=== PATIENT | male | born 1955 | race Caucasian/White ===

== ENCOUNTER 2025-05-19 10:51 | Inpatient (IN) | payer MEDICARE, SELFPAY ==
[2025-05-19] VITALS (11 sets, daily range): BP systolic 115–171; BP diastolic 63–97; PULSE 60–99; RESP 14–20; TEMP 36.6–36.7; O2SAT 95–100
--- NOTE | ~2025-05-19 | XR_ITS ---
EXAMINATION: XR chest 2V 05/19/2025 11:42 INDICATION: SVT. Chest pressure and shortness of breath. PROCEDURE: 2 view chest COMPARISON: 05/28/2012 FINDINGS: The lungs are clear. The cardiomediastinal silhouette is within normal limits. There are no pleural effusions. There is no pneumothorax suspected. IMPRESSION: 1: NO ACUTE CARDIOPULMONARY DISEASE. Reviewed, dictated and finalized at location A.
--- NOTE | 2025-05-19 10:57 | ECG_ITS ---
Test Date: 2025-05-19 10:58:31 Measurements Intervals [place] Rate: 101 P: 3 VA: 171 QRS: -25 QRSD: 114 T: -15 QT: 361 QTc: 468 Interpretive Statements SINUS TACHYCARDIA INTRAVENTRICULAR CONDUCTION DELAY VOLTAGE CRITERIA FOR LVH BORDERLINE ST-T WAVE ABNORMALITY- ANT/INF LEADS BORDERLINE ECG No previous ECG available for comparison Electronically Signed On 05-19-2025 11:18:18 CDT by Jamal Garcia D.O.
--- NOTE | 2025-05-19 11:08 | ED_ITS ---
HPI - Arrhythmia/Palpitations General Chief Complaint: Arrhythmia/Palpitations Stated Complaint: chest tightness, sob Time Seen by Provider: 05/19/25 11:01 History of Present Illness HPI narrative: Pt felt lightheaded and dizzy and felt his heart racing and became sob with some chest tightness. on ems arrival pt was in svt with rate in 170's. Pt converted with adenosine. Pt has no CP or SOB now. Pt has no history of svt. Related Data Allergies Allergy/AdvReac Type Severity Reaction Status Date / Time No Known Allergies Allergy Verified 05/19/25 11:08 Review of Systems 2 Review of Systems: All systems reviewed & are unremarkable except as noted in HPI and below Exam 2 Const: General: healthy appearing and no acute distress Nutritional Appearance: well nourished Orientation/consciousness: patient oriented x3 Limitations: no limitations HENMT: Head: normal to inspection Eyes: Pupils: Equal, round and reactive pupils present EOM: EOMs intact bilaterally Chest: Chest palpation & inspection: normal inspection of the chest Resp: Effort & Inspection: normal respiratory effort Auscultation: clear to auscultation bilaterally Cardio: Rate: tachycardic Rhythm: regular rhythm GI: Auscultation: normal bowel sounds Back/Spine/Pelvis: Back: no CVA tenderness Skin: General skin exam: normal color Rashes: no rashes Wounds: no wounds Neuro: General: patient oriented x3, moves all extremities, no meningeal signs and no focal motor deficits Speech: normal speech Extrem: General: normal to inspection and no clubbing, cyanosis or edema Psych: Mental Status: mental status grossly normal Affect: normal affect Attitude: cooperative Course Vital Signs Vital signs: Vital Signs Temperature 98 F 05/19/25 10:58 Pulse Rate 99 05/19/25 10:58 Respiratory Rate 14 05/19/25 10:58 Blood Pressure 171/95 H 05/19/25 10:58 Pulse Oximetry 98 05/19/25 10:58 Oxygen Delivery Room Air 05/19/25 10:58 Temperature 98 F 05/19/25 10:58 Pulse Rate 75 05/19/25 15:43 Respiratory Rate 18 05/19/25 15:43 Blood Pressure 148/97 H 05/19/25 15:43 Pulse Oximetry 97 05/19/25 15:43 Oxygen Delivery Room Air 05/19/25 11:10 MDM - Arrhythmia/Palpitations MDM Narrative Medical decision making narrative: Pt had episode of svt with sob and cp. pt converted with adenosine per ems and now asymptomatic but has st depression on ekg post conversion. will need labs and trop. second ekg unchanged and pt asymptomatic for 3 hrs, blood sugar over 500. will give insulin and admit for new onset diabetes. discussed with Nancy Orlando and agrees to admit. Lab Data 05/19/25 11:13 05/19/25 11:13 Labs: Lab Results 05/19/25 05/19/25 05/19/25 Range/Units 11:13 11:50 13:00 WBC 5.7 (4.5-10.0) K/mm3 RBC 4.93 (4.6-6.20) M/mm3 Hgb 14.3 (14.0-18.0) g/dL Hct 41.2 L (42.0-52.0) % MCV 83.6 (80-100) fl MCH 29.0 (26-34) pg MCHC 34.7 (32-36) g/dl RDW 12.4 (11.5-14.5) % Plt Count 235 (150-375) k/mm3 MPV 9.5 (7.4-10.4) fl Immature Gran % (Auto) 0.4 (0-0.5) % Neut % (Auto) 59.7 (45.5-73.1) % Lymph % (Auto) 26.2 (18.3-44.2) % [place] % (Auto) 9.5 H (2.6-8.5) % Eos % (Auto) 3.7 (0-4.4) % Baso % (Auto) 0.5 (0.2-1.2) % Lymph # (Auto) 1.49 (0.9-3.2) K/mm3 [place] # (Auto) 0.5 (0.1-0.6) K/mm3 Eos # (Auto) 0.2 (0-0.3) K/mm3 Baso # (Auto) 0.0 (0.0-0.1) K/mm3 Abs Immat Gran (auto) 0.02 (0.00-0.031) K/mm3 Absolute Neuts (auto) 3.4 (1.3-6.7) K/mm3 Absolute Nucleated RBC 0.000 (0.0-0.012) K/mm3 Nucleated RBC % 0.0 (0.0-0.2) % PT 13.3 (11.1-14.7) Seconds INR 1.0 APTT 33.1 (22.3-36.8) Seconds Sodium 130 L (137-145) mmol/L Potassium 4.3 (3.4-5.0) mmol/L Chloride 99 (98-107) mmol/L Carbon Dioxide 20 L (22-30) mmol/L Anion Gap 11 (4-12) mmol/L BUN 18 (9-20) mg/dL Creatinine 0.93 (0.7-1.3) mg/dL Estim Creat Clear Calc 84 ml/min Estimated GFR > 60 (59 - ) Glucose 523 H* (65-110) mg/dL POC Capillary Glucose 489 H 363 H (65-105) mg/dl Calcium 9.7 (8.4-10.2) mg/dL Total Bilirubin 0.9 (0.2-1.3) mg/dL AST 45 (17-59) U/L ALT 37 (6-50) U/L Alkaline Phosphatase 147 H (38-126) U/L Troponin I 0.019 (0.000-0.034) ng/mL Total Protein 7.9 (6.3-8.2) g/dL Albumin 4.4 (3.5-5.1) g/dL Lipase 106 (23-300) U/L ECG Data EKG #1: Interpretation: sinus tach rate 101, iv conduction delay, st depression v2-v6 but most pronounced v3 Discharge Plan Discharge Clinical Impression: Supraventricular tachycardia, Hyperglycemia due to diabetes mellitus Patient Disposition: Still a Patient Condition: Improved
[2025-05-19 11:24] LABS: Hematocrit 41.2 % (42.0-52.0); Hemoglobin 14.3 g/dL (14.0-18.0); Immature Granulocyte Percent A 0.4 % (0-0.5); Lymphocytes Absolute Auto 1.49 K/mm3 (0.9-3.2); Mean Corpuscular HGB Conc 34.7 g/dl (32-36); Mean Corpuscular Hemoglobin 29.0 pg (26-34); Mean Corpuscular Volume 83.6 fl (80-100); Nucleated Red Blood Cells Absolute Auto 0.000 K/mm3 (0.0-0.012); Nucleated Red Blood Cells Perc 0.0 % (0.0-0.2); Platelet Count Result 235 k/mm3 (150-375); Red Blood Count 4.93 M/mm3 (4.6-6.20); White Blood Count 5.7 K/mm3 (4.5-10.0)
[2025-05-19 11:35] LABS: INR 1.0; Prothrombin Time 13.3 Seconds (11.1-14.7)
[2025-05-19 11:36] LABS: Partial Thromboplastin Time 33.1 Seconds (22.3-36.8)
[2025-05-19 11:42] LABS: Alanine Aminotransferase 37 U/L (6-50); Albumin Level 4.4 g/dL (3.5-5.1); Alkaline Phosphatase 147 U/L (38-126); Anion Gap 11 mmol/L (4-12); Aspartate Amino Transferase 45 U/L (17-59); Bilirubin,Total 0.9 mg/dL (0.2-1.3); Blood Urea Nitrogen 18 mg/dL (9-20); Calcium 9.7 mg/dL (8.4-10.2); Carbon Dioxide 20 mmol/L (22-30); Chloride 99 mmol/L (98-107); Estimated CRCL calculation 84 ml/min; Estimated Glomerular Filt Rate > 60; Glucose 523 mg/dL (65-110); Lipase 106 U/L (23-300); Potassium 4.3 mmol/L (3.4-5.0); Sodium 130 mmol/L (137-145); Total Protein 7.9 g/dL (6.3-8.2)
[2025-05-19 11:53] LABS: Troponin I 0.019 ng/mL (0.000-0.034)
--- NOTE | 2025-05-19 11:55 | ECG_ITS ---
Test Date: 2025-05-19 12:00:35 Measurements Intervals [place] Rate: 93 P: 11 MO: 174 QRS: -30 QRSD: 114 T: 3 QT: 365 QTc: 455 Interpretive Statements SINUS RHYTHM INTRAVENTRICULAR CONDUCTION DELAY VOLTAGE CRITERIA FOR LVH MINIMAL Q WAVES- HIGH LATERAL LEADS BORDERLINE ST-T WAVE ABNORMALITY- ANT/INF LEADS BASELINE ARTIFACT- I, III, AVL BORDERLINE ECG Compared to ECG 05/19/2025 10:58:31 HEART RATE HAS DECREASED Electronically Signed On 05-19-2025 12:04:51 CDT by Jamal Garcia D.O.
[2025-05-19] MEDS: INSULIN HUMAN REGULAR (*BKC) 100 UNITS/ML 8 UNITS IV PUSH (12:07)
--- NOTE | 2025-05-19 13:58 | ECG_ITS ---
Test Date: 2025-05-19 14:08:25 Measurements Intervals [place] Rate: 85 P: 6 CO: 166 QRS: -31 QRSD: 107 T: 6 QT: 366 QTc: 436 Interpretive Statements SINUS RHYTHM LEFT AXIS DEVIATION LEFT VENTRICULAR HYPERTROPHY BORDERLINE ECG Compared to ECG 05/19/2025 12:00:35 NO SIGNIFICANT CHANGE Electronically Signed On 05-19-2025 14:17:04 CDT by Jamal Garcia D.O.
[2025-05-19 14:35] LABS: Troponin I 0.463 ng/mL (0.000-0.034)
--- NOTE | 2025-05-19 17:36 | P.HP_ITS ---
H&P: HPI History of Present Illness Date/Time: 05/19/25 17:36 Chief Complaint: Chest Tightness Narrative: 70 y/o M with no significant known PMH presents here with chest tightness. The patient presents here from home via EMS for further evaluation of chest tightness, shortness of breath, and lightheadedness. He reports acute onset of the symptoms which prompted him to call 911. Upon EMS arrival the patient was noted to be in SVT with a heart rate in the 170s. The patient was initially given 6 mg of adenosine with no improvement. Then seems repeated at 12 mg and patient was successfully converted to sinus rhythm in the 90s. Patient's symptoms then resolved after resolution of SVT. He now denies chest pain, dizziness, palpations, nausea, vomiting, diarrhea, shortness of breath. He denies any precipitating illness. He denies any previous history of dysrhythmia or SVT. Upon evaluation in the emergency department the patient was noted to have a glucose of 523. He denies any previously known history of diabetes. Does endorse polydipsia (however previously contributed this to always being outside). Denies polyuria. Initial VS at presentation: 98? F, HR 99 RR 14, 171/95, and 98% on RA. ED workup showed: No leukocytosis, no anemia, normal coags, sodium 130, creatinine 0.93 and GFR >60, glucose 523, initial troponin 0.019 (repeat 0.463). CXR showed no acute cardiopulmonary disease. Initial EKG showed sinus tachycardia, rate 101, and IVC delay, voltage criteria for LVH, borderline ST-T-wave abnormality anterior/inferior leads. Review of Systems Review of Systems: All systems reviewed & are unremarkable except as noted in HPI and below [facility] Past Medical History Medical History (Updated 05/19/25 @ 17:45 by Nancy Delgado APRN) Supraventricular tachycardia 1st occurrence on 05/19/25 Social History Social History Smoking status: Never smoker Alcohol intake: never Substance use: never Lack of Transportation: No Lack of Food: Never True Current Housing: I Have Housing Concerned About Future Housing: No Difficulty Paying Gas/Electric Bills: No Difficulty Paying for Meds: No Currently Unemployed: No Education: Bachelor's Degree Difficulty w/ Childcare or Family Care: No Spiritual care concerns: No Meds Home Medications and Allergies Home Medications ?Medication ?Instructions ?Recorded ?Confirmed ?Type No Home Medications 05/19/25 05/19/25 History Allergies Allergy/AdvReac Type Severity Reaction Status Date / Time No Known Allergies Allergy Verified 05/19/25 11:08 Vital Signs Vital Signs - 24 hr 05/19/25 10:58 05/19/25 11:07 05/19/25 11:10 Temperature 98 F Pulse Rate 99 97 Respiratory Rate 14 Blood Pressure 171/95 H Pulse Oximetry 98 Oxygen Delivery Room Air Room Air 05/19/25 12:15 05/19/25 14:41 05/19/25 15:43 Temperature Pulse Rate 95 80 75 Respiratory Rate 20 19 18 Blood Pressure 154/81 H 144/80 H 148/97 H Pulse Oximetry 98 95 97 Oxygen Delivery Exam Const: General: comfortable and no acute distress Other: , male, nontoxic appearance HENMT: Face/Nose/Sinus: Normal nares present Mouth: Yes moist mucous membranes Eyes: General: appearance normal, both eyes and all related structures Sclera: sclerae normal Pupils: Equal, round and reactive pupils present EOM: EOMs intact bilaterally Resp: Effort & Inspection: normal respiratory effort Auscultation: clear to auscultation bilaterally Cardio: Rate: regular rate Rhythm: regular rhythm Other: S1-S2 present without murmur, rub, ectopy GI: Other: Abdomen soft, nondistended, nontender. Normoactive bowel sounds in all quadrants. Skin: General skin exam: normal color and no rashes or lesions noted Wounds: no wounds Neuro: Speech: normal speech Motor exam (neuro): 5/5 motor strength present throughout Sensory Exam: normal sensation Other: A&O x4 Extrem: General: normal to inspection Psych: Mental Status: mental status grossly normal Affect: normal affect Other: Good insight and judgment, very pleasant H&P: Results Labs Labs: Short CBC 05/19/25 Range/Units 11:13 WBC 5.7 (4.5-10.0) K/mm3 Hgb 14.3 (14.0-18.0) g/dL Hct 41.2 L (42.0-52.0) % Plt Count 235 (150-375) k/mm3 [facility] 05/19/25 11:13 Sodium 130 L Potassium 4.3 Chloride 99 Carbon Dioxide 20 L BUN 18 Creatinine 0.93 Glucose 523 H* Calcium 9.7 Cardiac Enzymes 05/19/25 05/19/25 Range/Units 11:13 14:04 Troponin I 0.019 0.463 H* D (0.000-0.034) ng/mL Liver Function 05/19/25 Range/Units 11:13 Total Bilirubin 0.9 (0.2-1.3) mg/dL AST 45 (17-59) U/L ALT 37 (6-50) U/L Alkaline Phosphatase 147 H (38-126) U/L Albumin 4.4 (3.5-5.1) g/dL Assessment and Plan Assessment and plan (1) Type 2 diabetes mellitus: Qualifiers: Diabetes mellitus complication status: with hyperglycemia Diabetes mellitus penitentiary insulin use: without parts counterman use Qualified Code(s): E11.65 - Type 2 diabetes mellitus with hyperglycemia Code(s): E11.9 - Type 2 diabetes mellitus without complications Status: Acute Assessment and Plan: No previous history of diabetes, initial glucose upon initial evaluation on 05/19 was 523. - hypoglycemia protocol - POC blood glucose ACHS - correct regimen ordered - high dose TIDWM, based off BMI - A1C ordered - specimen processor consulted - dietitian consulted (2) Supraventricular tachycardia: Code(s): I47.10 - Supraventricular tachycardia, unspecified Status: Acute Assessment and Plan: - NSR upon arrival post adenosine (6 mg and 12 mg via EMS). No previous hx of same. First occurrence. - check Magnesium and TSH -> Mag WNL - troponin: 0.019 -> 0.463 -> 1.53. Suspect elevation in troponin secondary to SVT/cardiac stress. Denies recurrence of chest pain, chest tightness, palpitations, or shortness of breath. - cardiology consulted - telemetry Plan Diet: Diabetic GI Prophylaxis: n/a DVT Prophylaxis: Lovenox SQ IV fluids: None Lines/Tubes: Peripheral IV Code Status: Full code Quality VTE Prophylaxis VTE prophylaxis: pharmacologic ordered Hospitalist [facility] Advance Care Plan I have confirmed that the patient's Advanced Care Plan is present, code status is documented, or surrogate decision maker is listed in patient medical record.: Yes Medication Reconciliation I have utilized all available resources to obtain, update and review the patients current medications (includes all prescriptions, OTC, herbals, cannabis, and nutritional supplements).: Yes
--- NOTE | 2025-05-19 17:38 | ADMGEN ---
This patient, Spenser Robbins, was admitted to IMU Room 213-01. Patient/family oriented to hospital policies and general routines including ID bracelet, bed and alarms, visiting hours, pain management, procedures, bathroom and other care routines, personal items, smoking policy, room service/diet, and visiting hours. Information on how to activate the Rapid Response Team has been discussed. Patient/Family are encouraged to report perceived risks to care and to ask questions if they do not understand what they are told or what they should do.
[2025-05-19 19:09] LABS: Troponin I 1.530 ng/mL (0.000-0.034)
[2025-05-19 19:59] LABS: Magnesium 1.8 mg/dL (1.6-2.3)
[2025-05-19 21:58] LABS: Troponin I 1.680 ng/mL (0.000-0.034)
[2025-05-20] VITALS (21 sets, daily range): BP systolic 132–165; BP diastolic 73–116; PULSE 55–85; RESP 16–18; TEMP 36.4–36.9; O2SAT 96–100; BMI 32.1
--- NOTE | 2025-05-20 | ECHO_ITS ---
Patient Info Name: Spenser Robbins Age: 70 years : 1955 Gender: Male Ht: 72 in Wt: 223 lbs BSA: 2.29 m2 HR: 53 bpm BP: 154 / 85 mmHg Technical Quality: Good Exam Date: 05/20/2025 3:09 PM Patient Status: I Admit Date: 05/20/2025 Exam Type: CA echo doppler color flow Complete two-dimensional, color flow and Doppler transthoracic echocardiogram is performed. Staff Referring Physician: Glenn De Leon III [employer] Trader: Chika Vasquez Attending Provider: Quinn Chamorro Summary 1. Complete two-dimensional, color flow and Doppler transthoracic echocardiogram is performed. 2. Left ventricular chamber dimension is normal. 3. Left ventricular systolic function is normal, estimated at 60-65. 4. The left ventricular diastolic function is grade I diastolic dysfunction. 5. E/e' 8 is minimally elevated. Left Ventricle E/e' 8 is minimally elevated. Left ventricular chamber dimension is normal. Left ventricular systolic function is normal, estimated at 60-65. The left ventricular diastolic function is grade I diastolic dysfunction. Right Ventricle Right ventricular chamber dimension is normal. Right ventricular systolic function is normal and with normal TAPSE 1.8 cm. Left Atria Left atrial chamber dimension is normal. Right Atria Right atrial chamber dimension is normal. Aortic Valve The aortic valve is trileaflet. There is no aortic valve stenosis. There is no aortic valve regurgitation. Pulmonic Valve There is no pulmonic regurgitation. Mitral Valve There is no mitral valve stenosis. There is no mitral valve regurgitation. Tricuspid Valve There is no tricuspid valve regurgitation. Pericardium/Pleural There is no pericardial effusion. Inferior Vena Cava Normal inferior vena cava with >50% collapse upon inspiration consistent with normal right atrial pressure, 5 mmHg. Aorta The aortic root size at the sinus of Valsalva is normal. Left Ventricular Outflow Tract Name Value Normal LVOT 2D LVOT Diameter 2.0 cm LVOT Doppler LVOT Peak Velocity 122 cm/s LVOT Peak Gradient 6 mmHg LVOT Mean Gradient 3 mmHg LVOT VTI 24 cm LVOT Stroke Volume 74 ml LVOT CO 3.9 l/min LVOT CI 1.7 l/min/m2 Pulmonic Valve Name Value Normal RVOT Doppler RVOT Peak Velocity 80 cm/s RVOT Peak Gradient 3 mmHg PV Doppler PV Peak Velocity 120 cm/s PV Peak Gradient 6 mmHg Mitral Valve Name Value Normal MV Diastolic Function MV E Peak Velocity 52 cm/s MV A Peak Velocity 74 cm/s MV E/A 0.7 MV Decel Time (PW) 288 ms MV Annular TDI MV E/e' (Septal) 12.1 MV E/e' (Lateral) 6.5 MV E/e' (Average) 9.3 Tricuspid Valve Name Value Normal Estimated PAP/RSVP RA Pressure 5 mmHg <=5 Aortic Valve Name Value Normal AV Doppler AV Peak Velocity 143 cm/s AV Peak Gradient 8 mmHg AV Area (Cont Eq Andrew) 2.6 cm2 AV DI (Andrew) 0.85 AV Regurgitation 2D LVOT Area 3.1 cm2 Ventricles Name Value Normal LV Dimensions 2D/MM IVS Diastolic Thickness (2D) 0.9 cm 0.6-1.0 LVID Diastole (2D) 5.2 cm 4.2-5.8 LVIW Diastolic Thickness (2D) 1.0 cm 0.6-1.0 LVID Systole (2D) 3.2 cm 2.5-4.0 LVOT Diameter 2.0 cm LV Mass (2D Cubed) 189.27 g 88.00-224.00 LV Mass Index (2D Cubed) 83 g/m2 49-115 Relative Wall Thickness (2D) 0.40 <=0.42 LV Fractional Shortening/Ejection Fraction 2D/MM LV Fractional Shortening (2D) 38 % 25-43 LV EF (2D [place]) 68 % LV Diastolic Volume (4C MOD) 122 ml LV EF (4C MOD) 55 % LV Diastolic Volume (2C MOD) 125 ml LV EF (2C MOD) 65 % LV Diastolic Volume (BP MOD) 124 ml 62-150 LV Diastolic Volume Index (BP MOD) 54 ml/m2 34-74 LV Systolic Volume (BP MOD) 50 ml 21-61 LV Systolic Volume Index (BP MOD) 22 ml/m2 11-31 LV EF (BP MOD) 59 % 52-72 LV Diastolic Length (4C) 8.8 cm LV Systolic Length (4C) 7.8 cm LV Stroke Volume (4C MOD) 67 ml Atria Name Value Normal LA Dimensions LA Volume (4C A-L) 45 ml LA Volume (BP A-L) 56 ml RA Dimensions RA Systolic Major [place] Length (4C) 5.0 cm 2.1-2.7 RA Area (4C) 10.8 cm2 <=18.0 Report Signatures
[2025-05-20 01:53] LABS: Troponin I 1.470 ng/mL (0.000-0.034)
[2025-05-20 04:53] LABS: Hematocrit 43.3 % (42.0-52.0); Hemoglobin 14.6 g/dL (14.0-18.0); Immature Granulocyte Percent A 0.2 % (0-0.5); Lymphocytes Absolute Auto 2.20 K/mm3 (0.9-3.2); Mean Corpuscular HGB Conc 33.7 g/dl (32-36); Mean Corpuscular Hemoglobin 28.7 pg (26-34); Mean Corpuscular Volume 85.1 fl (80-100); Nucleated Red Blood Cells Absolute Auto 0.000 K/mm3 (0.0-0.012); Nucleated Red Blood Cells Perc 0.0 % (0.0-0.2); Platelet Count Result 263 k/mm3 (150-375); Red Blood Count 5.09 M/mm3 (4.6-6.20); White Blood Count 5.4 K/mm3 (4.5-10.0)
[2025-05-20 04:58] LABS: Hemoglobin A1C 10.4 % (<5.7)
[2025-05-20 05:10] LABS: Alanine Aminotransferase 32 U/L (6-50); Albumin Level 4.4 g/dL (3.5-5.1); Alkaline Phosphatase 83 U/L (38-126); Anion Gap 7 mmol/L (4-12); Aspartate Amino Transferase 35 U/L (17-59); Bilirubin,Total 0.9 mg/dL (0.2-1.3); Blood Urea Nitrogen 16 mg/dL (9-20); Calcium 10.2 mg/dL (8.4-10.2); Carbon Dioxide 27 mmol/L (22-30); Chloride 100 mmol/L (98-107); Estimated CRCL calculation 78 ml/min; Estimated Glomerular Filt Rate > 60; Glucose 249 mg/dL (65-110); Potassium 4.3 mmol/L (3.4-5.0); Sodium 134 mmol/L (137-145); Total Protein 7.9 g/dL (6.3-8.2)
[2025-05-20 05:40] LABS: Thyroid Stimulating Hormone Reflex 1.540 uIU/mL (0.465-4.68)
--- NOTE | 2025-05-20 08:07 | P.PNIM_ITS ---
Progress Note: A&P Assessment and Plan (1) Type 2 diabetes mellitus: Qualifiers: Diabetes mellitus complication status: with hyperglycemia Diabetes mellitus remote computer terminal operator insulin use: without remote computer terminal operator use Qualified Code(s): E11.65 - Type 2 diabetes mellitus with hyperglycemia Code(s): E11.9 - Type 2 diabetes mellitus without complications Status: Acute Assessment and Plan: No previous history of diabetes, initial glucose upon initial evaluation on 05/19 was 523. - hypoglycemia protocol - POC blood glucose ACHS - correct regimen ordered - high dose TIDWM, based off BMI - A1C ordered - environmental educator consulted - dietitian consulted hga1c 10.4 -will add 10 units of lantus (2) Supraventricular tachycardia: Code(s): I47.10 - Supraventricular tachycardia, unspecified Status: Acute Assessment and Plan: - NSR upon arrival post adenosine (6 mg and 12 mg via EMS). No previous hx of same. First occurrence. - check Magnesium and TSH -> Mag WNL - troponin: 0.019 -> 0.463 -> 1.53. Suspect elevation in troponin secondary to SVT/cardiac stress. Denies recurrence of chest pain, chest tightness, palpitations, or shortness of breath. - cardiology consulted - telemetry Plan Diet: Diabetic GI Prophylaxis: n/a DVT Prophylaxis: Lovenox SQ IV fluids: None Lines/Tubes: Peripheral IV Code Status: Full code Time Spent With Patient Time with patient: 25 - 35 minutes Subjective Date/time seen: 05/20/25 08:07 Interval history: 70 y/o M with no significant known PMH presents here with chest tightness. Pt is seen and examined. Cardiology consulted-waiting for recommendations. no chest pain, no sob Review of Systems Review of Systems: All systems reviewed & are unremarkable except as noted in HPI and below Exam Const: General: comfortable and no acute distress Other: , male, nontoxic appearance HENMT: Face/Nose/Sinus: Normal nares present Mouth: Yes moist mucous membranes Eyes: General: appearance normal, both eyes and all related structures Sclera: sclerae normal Pupils: Equal, round and reactive pupils present EOM: EOMs intact bilaterally Resp: Effort & Inspection: normal respiratory effort Auscultation: clear to auscultation bilaterally Cardio: Rate: regular rate Rhythm: regular rhythm Other: S1-S2 present without murmur, rub, ectopy GI: Other: Abdomen soft, nondistended, nontender. Normoactive bowel sounds in all quadrants. Skin: General skin exam: normal color and no rashes or lesions noted Wounds: no wounds Neuro: Cranial nerves: Yes Equal, round and reactive pupils present Speech: normal speech Motor exam (neuro): 5/5 motor strength present throughout Sensory Exam: normal sensation Other: A&O x4 Extrem: General: normal to inspection Psych: Mental Status: mental status grossly normal Affect: normal affect Other: Good insight and judgment, very pleasant Objective Data Vital Signs Vital Signs: Vital Signs - 24 hr 05/19/25 10:58 05/19/25 11:07 05/19/25 11:10 Temperature 98 F Pulse Rate 99 97 Respiratory Rate 14 Blood Pressure 171/95 H Pulse Oximetry 98 Oxygen Delivery Room Air Room Air 05/19/25 12:15 05/19/25 14:41 05/19/25 15:43 Temperature Pulse Rate 95 80 75 Respiratory Rate 20 19 18 Blood Pressure 154/81 H 144/80 H 148/97 H Pulse Oximetry 98 95 97 Oxygen Delivery 05/19/25 17:05 05/19/25 18:00 05/19/25 19:30 Temperature 98 F 97.9 F Pulse Rate 64 70 60 Respiratory Rate 14 16 Blood Pressure 134/89 151/94 H Pulse Oximetry 100 100 Oxygen Delivery 05/19/25 20:00 05/19/25 20:00 05/19/25 22:00 Temperature Pulse Rate 65 61 61 Respiratory Rate Blood Pressure Pulse Oximetry Oxygen Delivery Room Air 05/19/25 23:23 05/20/25 00:00 05/20/25 00:00 Temperature 98.0 F Pulse Rate 62 58 L 61 Respiratory Rate 18 Blood Pressure 115/63 Pulse Oximetry 100 Oxygen Delivery Room Air 05/20/25 02:00 05/20/25 03:31 05/20/25 04:00 Temperature 98.4 F Pulse Rate 57 L 63 68 Respiratory Rate 17 Blood Pressure 159/93 H Pulse Oximetry 100 Oxygen Delivery 05/20/25 04:00 05/20/25 06:00 05/20/25 07:38 Temperature 97.6 F Pulse Rate 61 77 70 Respiratory Rate 18 Blood Pressure 165/90 H Pulse Oximetry 100 Oxygen Delivery Room Air Intake/Output Intake/Output: Intake & Output 05/17/25 05/18/25 05/19/25 05/20/25 23:59 23:59 23:59 23:59 Intake Total 240 240 Output Total 400 Balance -160 240 Meds/Results Medications: Active Medications Generic Name Dose Route Start Last Admin Trade Name Freq PRN Reason Stop Dose Admin Dextrose 12.5 gm 05/19/25 17:43 Dextrose 50% 25 Gm/50 Ml Syringe IV PUSH PRN PRN Hypoglycemia Protocol Enoxaparin Sodium 40 mg 05/20/25 09:00 Enoxaparin 40 Mg/0.4 Ml Syringe SUB-Q DAILY [facility] Glucagon 1 mg 05/19/25 17:43 Glucagon For Inj 1 Mg Vial IM PRN PRN Hypoglycemia Protocol Glucose 15 gm 05/19/25 17:43 Glucose Oral Gel 15 Gm Of Glucse In 37.5 Gm Tube PO PRN PRN Hypoglycemia Protocol Dextrose 1,000 mls @ 100 mls/hr 05/19/25 17:43 Dextrose 5% 1,000 Ml IVPB PRN PRN Hypoglycemia Protocol Insulin Aspart 4 - 8 units 05/20/25 08:00 Insulin Aspart (*Bkc) 100 Units/Ml SUB-Q TIDWM [facility] Protocol Radiology Results: ITS Impressions Chest X-Ray 05/19/25 11:57 IMPRESSION: 1: NO ACUTE CARDIOPULMONARY DISEASE. Labs Labs: Laboratory Results - last 24 hr 05/19/25 05/19/25 05/19/25 11:13 11:50 13:00 WBC 5.7 RBC 4.93 Hgb 14.3 Hct 41.2 L MCV 83.6 MCH 29.0 MCHC 34.7 RDW 12.4 Plt Count 235 MPV 9.5 Immature Gran % (Auto) 0.4 Neut % (Auto) 59.7 Lymph % (Auto) 26.2 [place] % (Auto) 9.5 H Eos % (Auto) 3.7 Baso % (Auto) 0.5 Lymph # (Auto) 1.49 [place] # (Auto) 0.5 Eos # (Auto) 0.2 Baso # (Auto) 0.0 Abs Immat Gran (auto) 0.02 Absolute Neuts (auto) 3.4 Absolute Nucleated RBC 0.000 Nucleated RBC % 0.0 PT 13.3 INR 1.0 APTT 33.1 Sodium 130 L Potassium 4.3 Chloride 99 Carbon Dioxide 20 L Anion Gap 11 BUN 18 Creatinine 0.93 Estim Creat Clear Calc 84 Estimated GFR > 60 Glucose 523 H* POC Capillary Glucose 489 H 363 H Hemoglobin A1c Calcium 9.7 Magnesium Total Bilirubin 0.9 AST 45 ALT 37 Alkaline Phosphatase 147 H Troponin I 0.019 Total Protein 7.9 Albumin 4.4 Lipase 106 TSH (Reflex) 05/19/25 05/19/25 05/19/25 14:04 15:51 17:39 WBC RBC Hgb Hct MCV MCH MCHC RDW Plt Count MPV Immature Gran % (Auto) Neut % (Auto) Lymph % (Auto) [place] % (Auto) Eos % (Auto) Baso % (Auto) Lymph # (Auto) [place] # (Auto) Eos # (Auto) Baso # (Auto) Abs Immat Gran (auto) Absolute Neuts (auto) Absolute Nucleated RBC Nucleated RBC % PT INR APTT Sodium Potassium Chloride Carbon Dioxide Anion Gap BUN Creatinine Estim Creat Clear Calc Estimated GFR Glucose POC Capillary Glucose 269 H 255 H Hemoglobin A1c Calcium Magnesium Total Bilirubin AST ALT Alkaline Phosphatase Troponin I 0.463 H* D Total Protein Albumin Lipase TSH (Reflex) 05/19/25 05/19/25 05/19/25 18:33 21:15 21:23 WBC RBC Hgb Hct MCV MCH MCHC RDW Plt Count MPV Immature Gran % (Auto) Neut % (Auto) Lymph % (Auto) [place] % (Auto) Eos % (Auto) Baso % (Auto) Lymph # (Auto) [place] # (Auto) Eos # (Auto) Baso # (Auto) Abs Immat Gran (auto) Absolute Neuts (auto) Absolute Nucleated RBC Nucleated RBC % PT INR APTT Sodium Potassium Chloride Carbon Dioxide Anion Gap BUN Creatinine Estim Creat Clear Calc Estimated GFR Glucose POC Capillary Glucose 259 H Hemoglobin A1c Calcium Magnesium 1.8 Total Bilirubin AST ALT Alkaline Phosphatase Troponin I 1.530 H* D 1.680 H* Total Protein Albumin Lipase TSH (Reflex) 05/20/25 05/20/25 05/20/25 01:08 04:25 07:19 WBC 5.4 RBC 5.09 Hgb 14.6 Hct 43.3 MCV 85.1 MCH 28.7 MCHC 33.7 RDW 12.5 Plt Count 263 MPV 9.2 Immature Gran % (Auto) 0.2 Neut % (Auto) 41.0 L Lymph % (Auto) 40.7 [place] % (Auto) 13.3 H Eos % (Auto) 3.9 Baso % (Auto) 0.9 Lymph # (Auto) 2.20 [place] # (Auto) 0.7 H Eos # (Auto) 0.2 Baso # (Auto) 0.1 Abs Immat Gran (auto) 0.01 Absolute Neuts (auto) 2.2 Absolute Nucleated RBC 0.000 Nucleated RBC % 0.0 PT INR APTT Sodium 134 L Potassium 4.3 Chloride 100 Carbon Dioxide 27 Anion Gap 7 BUN 16 Creatinine 0.98 Estim Creat Clear Calc 78 Estimated GFR > 60 Glucose 249 H POC Capillary Glucose 286 H Hemoglobin A1c 10.4 H Calcium 10.2 Magnesium Total Bilirubin 0.9 AST 35 ALT 32 Alkaline Phosphatase 83 Troponin I 1.470 H* Total Protein 7.9 Albumin 4.4 Lipase TSH (Reflex) 1.540 Quality VTE Prophylaxis VTE prophylaxis: pharmacologic ordered
[2025-05-20] MEDS: INSULIN ASPART (*BKC) 100 UNITS/ML SUB-Q ×2 (08:10→16:48)
--- NOTE | 2025-05-20 14:40 | P.CONCA_ITS ---
Assessment and Plan Assessment and plan (1) Non-STEMI (non-ST elevated myocardial infarction): Code(s): I21.4 - Non-ST elevation (NSTEMI) myocardial infarction Status: Acute Assessment and Plan: Will give a dose of enoxaparin 1 milligram/kilogram subQ x1. Start aspirin 81 mg p.o. daily. 2D echocardiogram Doppler be order and review. Will check a fasting lipid panel. Metoprolol tartrate 12.5 mg p.o. b.i.d. to be initiated as well as losartan 25 mg p.o. daily. Atorvastatin 20 mg daily will also be started. His elevated troponin certainly may be related to SVT and in and of itself however given the severity of symptoms, ST segment depressions anteriorly, risk factors and degree of troponin elevation, I think it is prudent to rule out occult obstructive coronary disease. Will keep NPO after midnight for cardiac catheterization tomorrow. (2) Supraventricular tachycardia: Code(s): I47.10 - Supraventricular tachycardia, unspecified Status: Acute Assessment and Plan: Will start metoprolol as detailed above. Check a TSH and a magnesium level if not already performed. Echocardiogram was also ordered (3) Type 2 diabetes mellitus: Qualifiers: Diabetes mellitus superintendent container terminal insulin use: without superintendent container terminal use Diabetes mellitus complication status: with hyperglycemia Qualified Code(s): E11.65 - Type 2 diabetes mellitus with hyperglycemia Code(s): E11.9 - Type 2 diabetes mellitus without complications Status: Acute Assessment and Plan: Per hospitalist (4) Hypertension: Code(s): I10 - Essential (primary) hypertension Status: Acute Assessment and Plan: Starting losartan and metoprolol History of Present Illness History of Present Illness Consult date/time: 05/20/25 14:40 Requesting physician: Nancy Delgado, CANDLE WRAPPING MACHINE OPERATOR Consult reason: Other (SVT, elevated troponin) Reason For Visit: hyprtglycemis/svt Narrative: Date of service 05/20/2025 Reason for consultation: SVT, elevated troponins Requesting provider: Nancy Delgado History: Patient is a 70-year-old male who previously saw Dr. Pruitt but has not seen a doctor in several years. Reportedly had no previous cardiac or other history although his glycohemoglobin upon admission is over 10. Obviously has undiagnosed diabetes and blood pressure was markedly elevated upon presentation. He was picking up his grandkids and had walked in to [email or web address] to strip picker a card. He started to feel abnormal and well sitting to strip picker his grandchildren he started to become short of breath and dizzy. He then had chest pressure. He called 911. He reportedly was in SVT and was given adenosine which with a 12 mg dose, did break his SVT. The entire episode lasted about 45 minutes. Came to the hospital for further workup evaluation. Symptoms did not radiate into his arm back neck or jaw. He currently denies any chest pain, shortness breath, syncope, presyncope, paroxysmal nocturnal dyspnea, orthopnea, edema or palpitations. Initial EKG did show ST segment depressions anteriorly concerning for ischemia. Troponins peaked at 1.68. Subsequent EKG shows resolution or at least improvement of his ST abnormalities. Review of Systems 2 Review of Systems: All systems reviewed & are unremarkable except as noted in HPI and below Constitutional: Constitutional: Denies body ache(s) Eyes: Eyes: Denies blurry vision ENT: Reports Normal hearing present Cardiovascular: Cardiovascular: Reports chest pain Respiratory: Respiratory: Reports dyspnea Gastrointestinal: Gastrointestinal: Denies abdominal pain Genitourinary: Genitourinary: Denies hematuria Musculoskeletal: Musculoskeletal: Denies back pain Integumentary/Breasts: Skin/Breast: Denies dry skin Neurologic: Denies Abnormal speech present Psychiatric: Psychiatric: Denies anxiety Endocrine: Endocrine: Denies excessive sweating Hematologic/Lymphatic: Hematologic/Lymphatic: Denies easy bleeding Allergic/Immunologic: Allergic/Immunologic: Denies GI upset with certain foods PMFSH Past Medical History Medical History (Updated 05/20/25 @ 14:47 by Leonel Crawford MD) Supraventricular tachycardia 1st occurrence on 05/19/25 Family History Family History (Updated 05/20/25 @ 14:45 by Leonel Crawford MD) Father Emphysema lung Social History Social History Smoking status: Never smoker Alcohol intake: never Substance use: never Lack of Transportation: No Lack of Food: Never True Current Housing: I Have Housing Concerned About Future Housing: No Difficulty Paying Gas/Electric Bills: No Difficulty Paying for Meds: No Currently Unemployed: No Education: Bachelor's Degree Difficulty w/ Childcare or Family Care: No Spiritual care concerns: No Meds Home Medications and Allergies Home Medications ?Medication ?Instructions ?Recorded ?Confirmed ?Type No Home Medications 05/19/25 05/19/25 History Allergies Allergy/AdvReac Type Severity Reaction Status Date / Time No Known Allergies Allergy Verified 05/19/25 11:08 Vital Signs Vital Signs - 24 hr 05/19/25 14:41 05/19/25 15:43 05/19/25 17:05 Temperature 36.6 C Pulse Rate 80 75 64 Respiratory Rate 19 18 14 Blood Pressure 144/80 H 148/97 H 134/89 Pulse Oximetry 95 97 100 Oxygen Delivery 05/19/25 18:00 05/19/25 19:30 05/19/25 20:00 Temperature 36.6 C Pulse Rate 70 60 65 Respiratory Rate 16 Blood Pressure 151/94 H Pulse Oximetry 100 Oxygen Delivery 05/19/25 20:00 05/19/25 22:00 05/19/25 23:23 Temperature 36.7 C Pulse Rate 61 61 62 Respiratory Rate 18 Blood Pressure 115/63 Pulse Oximetry 100 Oxygen Delivery Room Air 05/20/25 00:00 05/20/25 00:00 05/20/25 02:00 Temperature Pulse Rate 58 L 61 57 L Respiratory Rate Blood Pressure Pulse Oximetry Oxygen Delivery Room Air 05/20/25 03:31 05/20/25 04:00 05/20/25 04:00 Temperature 36.9 C Pulse Rate 63 68 61 Respiratory Rate 17 Blood Pressure 159/93 H Pulse Oximetry 100 Oxygen Delivery Room Air 05/20/25 06:00 05/20/25 07:38 05/20/25 08:00 Temperature 36.4 C Pulse Rate 77 70 76 Respiratory Rate 18 Blood Pressure 165/90 H Pulse Oximetry 100 Oxygen Delivery 05/20/25 09:03 05/20/25 10:00 05/20/25 11:48 Temperature 36.6 C Pulse Rate 72 61 Respiratory Rate 18 Blood Pressure 154/85 H Pulse Oximetry 96 99 Oxygen Delivery Room Air 05/20/25 12:00 05/20/25 14:00 Temperature Pulse Rate 60 58 L Respiratory Rate Blood Pressure Pulse Oximetry Oxygen Delivery Exam 2 Narrative: Patient awake alert oriented appears stated age Const: General: comfortable and no acute distress HENMT: Ears: TM's normal bilaterally Face/Nose/Sinus: Normal nares present Mouth: Yes moist mucous membranes Eyes: General: appearance normal, both eyes and all related structures S clera: sclerae normal Neck: Neck: supple and no JVD Chest: Other: No reproducible chest wall pain to palpation Resp: Effort & Inspection: normal respiratory effort Auscultation: clear to auscultation bilaterally Cardio: Rate: regular rate Rhythm: regular rhythm GI: Inspection: non-distended GI Palp: Yes Soft to palpation A uscultation: normal bowel sounds Skin: General skin exam: normal color and no rashes or lesions noted Neuro: Speech: normal speech Sensory Exam: normal sensation Extrem: General: normal to inspection Psych: Mental Status: mental status grossly normal Affect: normal affect Results Labs and Meds 05/20/25 04:25 05/20/25 04:25 Lab results: Cardiac Enzymes 05/19/25 05/19/25 05/20/25 Range/Units 18:33 21:23 01:08 AST (17-59) U/L Troponin I 1.530 H* D 1.680 H* 1.470 H* (0.000-0.034) ng/mL 05/20/25 Range/Units 04:25 AST 35 (17-59) U/L Troponin I (0.000-0.034) ng/mL CBC 05/20/25 Range/Units 04:25 WBC 5.4 (4.5-10.0) K/mm3 RBC 5.09 (4.6-6.20) M/mm3 Hgb 14.6 (14.0-18.0) g/dL Hct 43.3 (42.0-52.0) % Plt Count 263 (150-375) k/mm3 Lymph # (Auto) 2.20 (0.9-3.2) K/mm3 [place] # (Auto) 0.7 H (0.1-0.6) K/mm3 Eos # (Auto) 0.2 (0-0.3) K/mm3 Baso # (Auto) 0.1 (0.0-0.1) K/mm3 Comprehensive Metabolic Panel 05/20/25 Range/Units 04:25 Sodium 134 L (137-145) mmol/L Potassium 4.3 (3.4-5.0) mmol/L Chloride 100 (98-107) mmol/L Carbon Dioxide 27 (22-30) mmol/L BUN 16 (9-20) mg/dL Creatinine 0.98 (0.7-1.3) mg/dL Glucose 249 H (65-110) mg/dL Calcium 10.2 (8.4-10.2) mg/dL AST 35 (17-59) U/L ALT 32 (6-50) U/L Alkaline Phosphatase 83 (38-126) U/L Total Protein 7.9 (6.3-8.2) g/dL Albumin 4.4 (3.5-5.1) g/dL Intake and Output 05/19/25 05/20/25 05/20/25 23:59 07:59 15:59 Intake Total 240 240 Output Total 400 Balance -160 240 Intake: Oral 240 240 Output: Urine 400 Other: # Unmeasured Voids 1 Patient Weight 05/20/25 23:59 Weight 101.5 kg EKG is personally reviewed and independently interpreted as detailed above. Initial EKG shows sinus rhythm with anterior ST abnormality, consider ischemia. Subsequent EKG shows sinus rhythm with improvement or resolution of the ST abnormalities. Left axis deviation is noted
[2025-05-20] MEDS: ENOXAPARIN 100 MG/ML SYRINGE SUB-Q (15:22)
[2025-05-20] MEDS: METOPROLOL TARTRATE 12.5 MG TABLET PO ×2 (15:22→20:22)
[2025-05-20 15:43] LABS: Cholesterol 280 mg/dL (0-200); HDL Direct 31 mg/dL; Triglycerides 456 mg/dL (<150)
[2025-05-20] MEDS: INSULIN GLARGINE (*BKC) 100 UNITS/ML 10 UNITS SUB-Q (20:22)
[2025-05-21] VITALS (24 sets, daily range): BP systolic 109–169; BP diastolic 70–93; PULSE 50–84; RESP 14–20; TEMP 36.4–36.8; O2SAT 98–100
[2025-05-21] MEDS: ASPIRIN 81 MG ENTERIC TABLET PO (08:55)
[2025-05-21] MEDS: ATORVASTATIN 20 MG TABLET PO (08:55)
[2025-05-21] MEDS: LOSARTAN POTASSIUM 25 MG TABLET PO (08:55)
--- NOTE | 2025-05-21 10:56 | PM.IMPN ---
Progress Note: A&P Assessment and Plan (1) Type 2 diabetes mellitus: Qualifiers: Diabetes mellitus skilled nursing insulin use: without skilled nursing use Diabetes mellitus complication status: with hyperglycemia Qualified Code(s): E11.65 - Type 2 diabetes mellitus with hyperglycemia Code(s): E11.9 - Type 2 diabetes mellitus without complications Status: Acute Assessment and Plan: No previous history of diabetes, initial glucose upon initial evaluation on 05/19 was 523. - hypoglycemia protocol - POC blood glucose ACHS - correct regimen ordered - high dose TIDWM, based off BMI - A1C ordered - in service educator consulted - dietitian consulted hga1c 10.4 -will add 10 units of lantus BS 208 this am. will keep regimen for now and monitor closely. (2) Supraventricular tachycardia: Code(s): I47.10 - Supraventricular tachycardia, unspecified Status: Acute Assessment and Plan: - NSR upon arrival post adenosine (6 mg and 12 mg via EMS). No previous hx of same. First occurrence. - check Magnesium and TSH -> Mag WNL - troponin: 0.019 -> 0.463 -> 1.53. Suspect elevation in troponin secondary to SVT/cardiac stress. Denies recurrence of chest pain, chest tightness, palpitations, or shortness of breath. - cardiology consulted - telemetry (3) Non-STEMI (non-ST elevated myocardial infarction): Code(s): I21.4 - Non-ST elevation (NSTEMI) myocardial infarction Status: Acute Assessment and Plan: cardiology following recommendations reviewed: dose of enoxaparin 1 milligram/kilogram subQ x1. Start aspirin 81 mg p.o. daily. 2D echocardiogram Doppler be order and review. Will check a fasting lipid panel. Metoprolol tartrate 12.5 mg p.o. b.i.d. to be initiated as well as losartan 25 mg p.o. daily. Atorvastatin 20 mg daily will also be started. His elevated troponin certainly may be related to SVT and in and of itself however given the severity of symptoms, ST segment depressions anteriorly, risk factors and degree of troponin elevation, I think it is prudent to rule out occult obstructive coronary disease. Will keep NPO after midnight for cardiac catheterization tomorrow. Plan Diet: Diabetic GI Prophylaxis: n/a DVT Prophylaxis: Lovenox SQ IV fluids: None Lines/Tubes: Peripheral IV Code Status: Full code Time Spent With Patient Time with patient: 25 - 35 minutes Subjective Date/time seen: 05/21/25 10:56 Interval history: 70 y/o M with no significant known PMH presents here with chest tightness. Pt is seen and examined this morning. He is up in a chair, calm and comfortable, denies chest pain, palpitation, sob, dizziness. Cardiac cath today, he is NPO. Review of Systems Review of Systems: All systems reviewed & are unremarkable except as noted in HPI and below Exam Const: General: comfortable and no acute distress Other: , male, nontoxic appearance HENMT: Face/Nose/Sinus: Normal nares present Mouth: Yes moist mucous membranes Eyes: General: appearance normal, both eyes and all related structures Sclera: sclerae normal Pupils: Equal, round and reactive pupils present EOM: EOMs intact bilaterally Resp: Effort & Inspection: normal respiratory effort Auscultation: clear to auscultation bilaterally Cardio: Rate: regular rate Rhythm: regular rhythm Other: S1-S2 present without murmur, rub, ectopy GI: Other: Abdomen soft, nondistended, nontender. Normoactive bowel sounds in all quadrants. Skin: General skin exam: normal color and no rashes or lesions noted Wounds: no wounds Neuro: Cranial nerves: Yes Equal, round and reactive pupils present Speech: normal speech Motor exam (neuro): 5/5 motor strength present throughout Sensory Exam: normal sensation Other: A&O x4 Extrem: General: normal to inspection Psych: Mental Status: mental status grossly normal Affect: normal affect Other: Good insight and judgment, very pleasant Objective Data Vital Signs Vital Signs: Vital Signs - 24 hr 05/20/25 11:48 05/20/25 12:00 05/20/25 14:00 Temperature 97.9 F Pulse Rate 61 60 58 L Respiratory Rate 18 Blood Pressure 154/85 H Pulse Oximetry 99 Oxygen Delivery 05/20/25 15:22 05/20/25 15:55 05/20/25 16:00 Temperature 98.0 F Pulse Rate 62 68 61 Respiratory Rate 18 Blood Pressure 155/116 H Pulse Oximetry 99 Oxygen Delivery 05/20/25 18:00 05/20/25 19:39 05/20/25 20:00 Temperature 97.7 F Pulse Rate 61 58 L 59 L Respiratory Rate 17 17 Blood Pressure 132/79 Pulse Oximetry 100 100 Oxygen Delivery Room Air 05/20/25 20:00 05/20/25 20:22 05/20/25 22:00 Temperature Pulse Rate 59 L 85 55 L Respiratory Rate Blood Pressure Pulse Oximetry Oxygen Delivery 05/20/25 23:51 05/21/25 00:00 05/21/25 00:00 Temperature 98.3 F Pulse Rate 55 L 52 L 52 L Respiratory Rate 16 16 Blood Pressure 136/73 Pulse Oximetry 99 99 Oxygen Delivery Room Air 05/21/25 00:08 05/21/25 02:00 05/21/25 03:41 Temperature 98.0 F Pulse Rate 56 L 63 Respiratory Rate 17 Blood Pressure 124/79 Pulse Oximetry 99 100 Oxygen Delivery Room Air 05/21/25 04:00 05/21/25 04:00 05/21/25 06:00 Temperature Pulse Rate 59 L 59 L 58 L Respiratory Rate 17 Blood Pressure Pulse Oximetry 100 Oxygen Delivery Room Air 05/21/25 07:50 Temperature 97.5 F L Pulse Rate 50 L Respiratory Rate 18 Blood Pressure 148/84 H Pulse Oximetry 99 Oxygen Delivery Intake/Output Intake/Output: Intake & Output 05/18/25 05/19/25 05/20/25 05/21/25 23:59 23:59 23:59 23:59 Intake Total 240 480 Output Total 400 1000 Balance -160 -520 Meds/Results Medications: Active Medications Generic Name Dose Route Start Last Admin Trade Name Freq PRN Reason Stop Dose Admin Aspirin 81 mg 05/21/25 09:00 05/21/25 08:55 Aspirin 81 Mg Enteric Tablet PO 81 mg QAM NELSY Administration Atorvastatin Calcium 20 mg 05/21/25 09:00 05/21/25 08:55 Atorvastatin 20 Mg Tablet PO 20 mg DAILY NELSY Administration Dextrose 12.5 gm 05/19/25 17:43 Dextrose 50% 25 Gm/50 Ml Syringe IV PUSH PRN PRN Hypoglycemia Protocol Enoxaparin Sodium 100 mg 05/20/25 15:15 05/21/25 08:48 Enoxaparin 100 Mg/Ml Syringe SUB-Q Not Given DAILY NELSY Glucagon 1 mg 05/19/25 17:43 Glucagon For Inj 1 Mg Vial IM PRN PRN Hypoglycemia Protocol Glucose 15 gm 05/19/25 17:43 Glucose Oral Gel 15 Gm Of Glucse In 37.5 Gm Tube PO PRN PRN Hypoglycemia Protocol Dextrose 1,000 mls @ 100 mls/hr 05/19/25 17:43 Dextrose 5% 1,000 Ml IVPB PRN PRN Hypoglycemia Protocol Insulin Aspart 4 - 8 units 05/20/25 08:00 05/21/25 08:47 Insulin Aspart (*Bkc) 100 Units/Ml SUB-Q Not Given TIDWM NELSY Protocol Insulin Glargine 10 units 05/20/25 21:00 05/20/25 20:22 Insulin Glargine (*Bkc) 100 Units/Ml SUB-Q 10 units HS NELSY Administration Losartan Potassium 25 mg 05/21/25 09:00 05/21/25 08:55 Losartan Potassium 25 Mg Tablet PO 25 mg DAILY NELSY Administration Metoprolol Tartrate 12.5 mg 05/20/25 14:55 05/20/25 20:22 Metoprolol Tartrate 12.5 Mg Tablet PO 12.5 mg Q12HR NELSY Administration Perflutren Lipid Microsphere 0 ml 05/20/25 13:33 Perflutren Lipid Microspheres 1.5 Ml Vial Diluted To 10 Ml Total Volume IV PUSH 05/23/25 13:33 ONCE PRN adequate visualization Protocol Radiology Results: ITS Impressions Chest X-Ray 05/19/25 11:57 IMPRESSION: 1: NO ACUTE CARDIOPULMONARY DISEASE. Labs Labs: Laboratory Results - last 24 hr 05/20/25 05/20/25 05/20/25 04:25 11:25 16:10 POC Capillary Glucose 238 H 219 H Triglycerides 456 H Cholesterol 280 H LDL Cholesterol Direct 123 HDL Direct 31 05/20/25 05/21/25 20:20 07:32 POC Capillary Glucose 264 H 208 H Triglycerides Cholesterol LDL Cholesterol Direct HDL Direct Quality VTE Prophylaxis VTE prophylaxis: pharmacologic ordered
--- NOTE | 2025-05-21 12:35 | P.PCNCC_ITS ---
Cardiac Cath Procedure Note Date of procedure:: 05/21/25 Performing physician:: Vanessa Yoo MD dos 05/21/2025 Indication:: Elevated troponins Brief clinical history:: Patient is a 70-year-old male who previously saw Dr. Pruitt but has not seen a doctor in several years. Reportedly had no previous cardiac or other history although his glycohemoglobin upon admission is over 10. Obviously has undiagnosed diabetes and blood pressure was markedly elevated upon presentation. He was picking up his grandkids and had walked in to [place] to garbage pick up worker a card. He started to feel abnormal and well sitting to garbage pick up worker his grandchildren he started to become short of breath and dizzy. He then had chest pressure. He called 911. He reportedly was in SVT and was given adenosine which with a 12 mg dose, did break his SVT. The entire episode lasted about 45 minutes. Came to the hospital for further workup evaluation. Symptoms did not radiate into his arm back neck or jaw. He currently denies any chest pain, shortness breath, syncope, presyncope, paroxysmal nocturnal dyspnea, orthopnea, edema or palpitations. Initial EKG did show ST segment depressions anteriorly concerning for ischemia. Troponins peaked at 1.68. Subsequent EKG shows resolution or at least improvement of his ST abnormalities. Procedure Procedure performed:: 1-Moderate sedation that started at 12:56 p.m. and ended at 1:36 p.m. total duration 40 minutes using 2mg of Versed and 50 mcg fentanyl. The registered nurse was luisito perez 2-Selective left and right coronary angiogram. 3-Left heart catheterization with measurement of LVEDP and measurement of gradient across aortic valve. 4-Right common femoral arterial angiogram. 5-Deployment of 6 Maltese Angio-Seal. 6-PCI attempt to the right coronary artery but aborted because we could not wire the RCA despite multiple stents and despite using multiple wires. Sedation/Medication given:: Moderate sedation. Access site:: Right common femoral artery. Estimated blood loss:: 10cc Procedure note:: After informed consent patient was brought in to ammunition assembly i laborer with the was draped and prepped in usual manner. Moderate sedation was given and the right groin was infiltrated using 1% lidocaine. Five Maltese sheath was obtained using micropuncture needle and the modified Seldinger technique. Selective left coronary angiogram was done using JL4 catheter with the tip of the catheter placed in the left main coronary artery. Selective right coronary angiogram was done using JR4 catheter with the tip of the catheter placed to the right coronary artery. After that 5 Maltese pigtail catheter was advanced across the aortic valve into the left ventricle with measurement of LVEDP and measurement of gradient across aortic valve. Right common femoral arterial angiogram was done. After that JR4 catheter guide was engaged in the RCA. We initially attempted to wire the RCA using BMW wire without success. Then we used Security Incident Handler 150 wire without success. Then we used support catheter micro RX and could not wire the RCA. Further attempts to wire aborted. Findings:: 1- left coronary artery is a large artery that divides into large LAD, large circumflex artery. Left main minimal irregularities 2- left anterior descending artery is a large artery that runs and wraps around the apex. Mid segment 90% lesion. Prior to lesion there is small to medium diagonal has 50% and diffuse irregularities. At the lesion there is a small diagonal branch with minimal irregularities. 3- leftcircumflex artery is a large artery. It gives rise to a medium OM1 branch that has 50% in the mid segment. 4- right coronary artery is large artery very tortuous. In the mid segment 95%. JESSIE flow 3. 5- LVEDP was 14 mm Hg and no gradient across aortic valve. 6- opening arterial pressure was 104/73 and closing pressure was 107/55 7- right femoral artery angiogram shows no significant disease in the right common femoral artery. Conclusion:: -attempt to PCI high-grade lesion mid RCA without success due to tortuosity and inability to pass wire. Assessment and Plan Assessment and plan (1) Non-STEMI (non-ST elevated myocardial infarction): Code(s): I21.4 - Non-ST elevation (NSTEMI) myocardial infarction Status: Acute Plan -will need to be assessed for CABG. Potentially bypassed LAD and hoping for arterial graft to the RCA as well.
--- NOTE | 2025-05-21 12:36 | WPDMODSED ---
Moderate Sedation Note-Pt Data Patient Data Diagnosis: NSTEMI Present Complaint: Dizziness Procedure to be performed/Plan: For coronary angiogram Allergies Allergy/AdvReac Type Severity Reaction Status Date / Time No Known Allergies Allergy Verified 05/19/25 11:08 Home Medications ?Medication ?Instructions ?Recorded ?Confirmed ?Type No Home Medications 05/19/25 05/19/25 History Current Medications: Active Medications Aspirin (Aspirin 81 Mg Enteric Tablet) 81 mg PO QAM [facility] Last Admin: 05/21/25 08:55 Dose: 81 mg Atorvastatin Calcium (Atorvastatin 20 Mg Tablet) 20 mg PO DAILY [facility] Last Admin: 05/21/25 08:55 Dose: 20 mg Dextrose (Dextrose 50% 25 Gm/50 Ml Syringe) 12.5 gm IV PUSH PRN PRN; Protocol PRN Reason: Hypoglycemia Enoxaparin Sodium (Enoxaparin 100 Mg/Ml Syringe) 100 mg SUB-Q DAILY [facility] Last Admin: 05/21/25 08:48 Dose: Not Given Glucagon (Glucagon For Inj 1 Mg Vial) 1 mg IM PRN PRN; Protocol PRN Reason: Hypoglycemia Glucose (Glucose Oral Gel 15 Gm Of Glucse In 37.5 Gm Tube) 15 gm PO PRN PRN; Protocol PRN Reason: Hypoglycemia Dextrose (Dextrose 5% 1,000 Ml) 1,000 mls @ 100 mls/hr IVPB PRN PRN; Protocol PRN Reason: Hypoglycemia Insulin Aspart (Insulin Aspart (*Bkc) 100 Units/Ml) 4 - 8 units SUB-Q TIDWM [facility]; Protocol Last Admin: 05/21/25 12:35 Dose: Not Given Insulin Glargine (Insulin Glargine (*Bkc) 100 Units/Ml) 10 units SUB-Q HS [facility] Last Admin: 05/20/25 20:22 Dose: 10 units Losartan Potassium (Losartan Potassium 25 Mg Tablet) 25 mg PO DAILY [facility] Last Admin: 05/21/25 08:55 Dose: 25 mg Metoprolol Tartrate (Metoprolol Tartrate 12.5 Mg Tablet) 12.5 mg PO Q12HR [facility] Last Admin: 05/21/25 08:00 Dose: Not Given Perflutren Lipid Microsphere (Perflutren Lipid Microspheres 1.5 Ml Vial Diluted To 10 Ml Total Volume) 0 ml IV PUSH ONCE PRN; Protocol PRN Reason: adequate visualization Stop: 05/23/25 13:33 Sedation/Anesthesia: No previous sedation/anesthesia problems (including family history). [facility] Past Medical History Medical History Supraventricular tachycardia 1st occurrence on 05/19/25 Family History Family History Father Emphysema lung Social History Social History Smoking status: Never smoker Alcohol intake: never Substance use: never Lack of Transportation: No Lack of Food: Never True Current Housing: I Have Housing Concerned About Future Housing: No Difficulty Paying Gas/Electric Bills: No Difficulty Paying for Meds: No Currently Unemployed: No Education: Bachelor's Degree Difficulty w/ Childcare or Family Care: No Spiritual care concerns: No Mod Sed Physical Exam Physical Exam Pre Procedural Exam: Normal: Appearance, Eyes, Ears, Nose, Neck, Throat, Airway, Lungs, Heart Size, Heart Rate, Heart Rhythm, Neuro Exam, Abdomen, Liver, Kidneys, Spleen, Breasts, Genitalia, Extremities and Skin Hours since solid foods: 8 Hours since liquid intake: 8 Mallampati Classification: class 1 Internal Medicine - PN: Obj Da Vital Signs Vital Signs: Vital Signs - 24 hr 05/20/25 14:00 05/20/25 15:22 05/20/25 15:55 Temperature 36.7 C Pulse Rate 58 L 62 68 Respiratory Rate 18 Blood Pressure 155/116 H Pulse Oximetry 99 Oxygen Delivery 05/20/25 16:00 05/20/25 18:00 05/20/25 19:39 Temperature 36.5 C Pulse Rate 61 61 58 L Respiratory Rate 17 Blood Pressure 132/79 Pulse Oximetry 100 Oxygen Delivery 05/20/25 20:00 05/20/25 20:00 05/20/25 20:22 Temperature Pulse Rate 59 L 59 L 85 Respiratory Rate 17 Blood Pressure Pulse Oximetry 100 Oxygen Delivery Room Air 05/20/25 22:00 05/20/25 23:51 05/21/25 00:00 Temperature 36.8 C Pulse Rate 55 L 55 L 52 L Respiratory Rate 16 16 Blood Pressure 136/73 Pulse Oximetry 99 99 Oxygen Delivery Room Air 05/21/25 00:00 05/21/25 00:08 05/21/25 02:00 Temperature Pulse Rate 52 L 56 L Respiratory Rate Blood Pressure Pulse Oximetry 99 Oxygen Delivery Room Air 05/21/25 03:41 05/21/25 04:00 05/21/25 04:00 Temperature 36.7 C Pulse Rate 63 59 L 59 L Respiratory Rate 17 17 Blood Pressure 124/79 Pulse Oximetry 100 100 Oxygen Delivery Room Air 05/21/25 06:00 05/21/25 07:50 05/21/25 08:00 Temperature 36.4 C L Pulse Rate 58 L 50 L 50 L Respiratory Rate 18 Blood Pressure 148/84 H Pulse Oximetry 99 Oxygen Delivery 05/21/25 08:00 05/21/25 08:00 05/21/25 10:00 Temperature Pulse Rate 50 L 52 L Respiratory Rate Blood Pressure Pulse Oximetry Oxygen Delivery Room Air 05/21/25 12:00 05/21/25 12:00 05/21/25 12:00 Temperature 36.6 C Pulse Rate 60 50 L Respiratory Rate 20 Blood Pressure 157/82 H Pulse Oximetry 100 Oxygen Delivery Room Air Intake/Output Intake/Output: Intake & Output 05/18/25 05/19/25 05/20/25 05/21/25 23:59 23:59 23:59 23:59 Intake Total 240 480 Output Total 400 1000 Balance -160 -520 Meds/Results Medications: Active Medications Generic Name Dose Route Start Last Admin Trade Name Freq PRN Reason Stop Dose Admin Aspirin 81 mg 05/21/25 09:00 05/21/25 08:55 Aspirin 81 Mg Enteric Tablet PO 81 mg QAM NELSY Administration Atorvastatin Calcium 20 mg 05/21/25 09:00 05/21/25 08:55 Atorvastatin 20 Mg Tablet PO 20 mg DAILY NELSY Administration Dextrose 12.5 gm 05/19/25 17:43 Dextrose 50% 25 Gm/50 Ml Syringe IV PUSH PRN PRN Hypoglycemia Protocol Enoxaparin Sodium 100 mg 05/20/25 15:15 05/21/25 08:48 Enoxaparin 100 Mg/Ml Syringe SUB-Q Not Given DAILY NELSY Glucagon 1 mg 05/19/25 17:43 Glucagon For Inj 1 Mg Vial IM PRN PRN Hypoglycemia Protocol Glucose 15 gm 05/19/25 17:43 Glucose Oral Gel 15 Gm Of Glucse In 37.5 Gm Tube PO PRN PRN Hypoglycemia Protocol Dextrose 1,000 mls @ 100 mls/hr 05/19/25 17:43 Dextrose 5% 1,000 Ml IVPB PRN PRN Hypoglycemia Protocol Insulin Aspart 4 - 8 units 05/20/25 08:00 05/21/25 12:35 Insulin Aspart (*Bkc) 100 Units/Ml SUB-Q Not Given TIDWM NELSY Protocol Insulin Glargine 10 units 05/20/25 21:00 05/20/25 20:22 Insulin Glargine (*Bkc) 100 Units/Ml SUB-Q 10 units HS NELSY Administration Losartan Potassium 25 mg 05/21/25 09:00 05/21/25 08:55 Losartan Potassium 25 Mg Tablet PO 25 mg DAILY NELSY Administration Metoprolol Tartrate 12.5 mg 05/20/25 14:55 05/21/25 08:00 Metoprolol Tartrate 12.5 Mg Tablet PO Not Given Q12HR NELSY Perflutren Lipid Microsphere 0 ml 05/20/25 13:33 Perflutren Lipid Microspheres 1.5 Ml Vial Diluted To 10 Ml Total Volume IV PUSH 05/23/25 13:33 ONCE PRN adequate visualization Protocol Radiology Results: ITS Impressions Chest X-Ray 05/19/25 11:57 IMPRESSION: 1: NO ACUTE CARDIOPULMONARY DISEASE. Labs 05/20/25 04:25 05/20/25 04:25 Labs: Laboratory Results - last 24 hr 05/20/25 05/20/25 05/20/25 04:25 16:10 20:20 POC Capillary Glucose 219 H 264 H Triglycerides 456 H Cholesterol 280 H LDL Cholesterol Direct 123 HDL Direct 31 05/21/25 05/21/25 07:32 11:46 POC Capillary Glucose 208 H 217 H Triglycerides Cholesterol LDL Cholesterol Direct HDL Direct ASA Classification/Sedation ASA Classification/Sedation ASA Class: I Emergent: No Risks: Risks, benefits and alternatives explained and patient/family accepted plan for sedation. Patient re-evaluated immediately prior to sedation.
--- NOTE | 2025-05-21 12:37 | WPDHPUPDATE1 ---
History and Physical Update Update Date/Time: 05/21/25 12:37 History and Physical has been reviewed, including an updated exam of the patient. There are NO changes in the patient's condition. Risks, benefits, and alternatives have been discussed and questions answered. Patient agrees to proceed with procedure.
[2025-05-21 14:29] LABS: Hematocrit 40.5 % (42.0-52.0); Hemoglobin 13.8 g/dL (14.0-18.0); Immature Granulocyte Percent A 0.2 % (0-0.5); Lymphocytes Absolute Auto 1.56 K/mm3 (0.9-3.2); Mean Corpuscular HGB Conc 34.1 g/dl (32-36); Mean Corpuscular Hemoglobin 28.9 pg (26-34); Mean Corpuscular Volume 84.9 fl (80-100); Nucleated Red Blood Cells Absolute Auto 0.000 K/mm3 (0.0-0.012); Nucleated Red Blood Cells Perc 0.0 % (0.0-0.2); Platelet Count Result 236 k/mm3 (150-375); Red Blood Count 4.77 M/mm3 (4.6-6.20); White Blood Count 5.1 K/mm3 (4.5-10.0)
[2025-05-21 14:47] LABS: INR 1.7; Prothrombin Time 20.2 Seconds (11.1-14.7)
[2025-05-21 14:49] LABS: Partial Thromboplastin Time 82.3 Seconds (22.3-36.8)
[2025-05-21] MEDS: SODIUM CHLORIDE 0.9% IV 1,000 ML 125 ML IV CONT (17:52)
[2025-05-21] MEDS: METOPROLOL TARTRATE 12.5 MG TABLET PO (20:03)
[2025-05-21] MEDS: HEPARIN SOD/D5W 100 UNITS/ML 25,000 UNITS/250 ML BAG 10 UNITS IV CONT (20:03)
[2025-05-21] MEDS: INSULIN GLARGINE (*BKC) 100 UNITS/ML 10 UNITS SUB-Q (20:07)
[2025-05-22] VITALS (18 sets, daily range): BP systolic 134–150; BP diastolic 81–86; PULSE 56–75; RESP 18–20; TEMP 36.5–36.9; O2SAT 98–100
[2025-05-22 05:14] LABS: Partial Thromboplastin Time 37.8 Seconds (22.3-36.8)
[2025-05-22 05:17] LABS: Red Blood Count 4.43 M/mm3 (4.6-6.20); White Blood Count 6.3 K/mm3 (4.5-10.0)
[2025-05-22 05:18] LABS: Hematocrit 38.1 % (42.0-52.0); Hemoglobin 12.9 g/dL (14.0-18.0); Mean Corpuscular HGB Conc 33.9 g/dl (32-36); Mean Corpuscular Hemoglobin 29.1 pg (26-34); Mean Corpuscular Volume 86.0 fl (80-100); Platelet Count Result 206 k/mm3 (150-375)
[2025-05-22 05:19] LABS: Nucleated Red Blood Cells Perc 0.0 % (0.0-0.2)
[2025-05-22 05:20] LABS: Immature Granulocyte Percent A 0.2 % (0-0.5); Nucleated Red Blood Cells Absolute Auto 0.000 K/mm3 (0.0-0.012)
[2025-05-22 05:21] LABS: Lymphocytes Absolute Auto 2.20 K/mm3 (0.9-3.2)
[2025-05-22 08:55] LABS: Anion Gap 7 mmol/L (4-12); Blood Urea Nitrogen 16 mg/dL (9-20); Calcium 9.6 mg/dL (8.4-10.2); Carbon Dioxide 23 mmol/L (22-30); Chloride 103 mmol/L (98-107); Estimated CRCL calculation 73 ml/min; Estimated Glomerular Filt Rate > 60; Glucose 177 mg/dL (65-110); Potassium 4.6 mmol/L (3.4-5.0); Sodium 133 mmol/L (137-145)
[2025-05-22] MEDS: METOPROLOL TARTRATE 12.5 MG TABLET PO ×2 (08:58→20:02)
[2025-05-22] MEDS: ATORVASTATIN 20 MG TABLET PO (08:58)
[2025-05-22] MEDS: LOSARTAN POTASSIUM 25 MG TABLET PO (08:58)
[2025-05-22] MEDS: ASPIRIN 81 MG ENTERIC TABLET PO (08:59)
[2025-05-22 09:27] LABS: Partial Thromboplastin Time 67.1 Seconds (22.3-36.8)
[2025-05-22] MEDS: INSULIN ASPART (*BKC) 100 UNITS/ML SUB-Q (11:47)
--- NOTE | 2025-05-22 11:57 | P.PNIM_ITS ---
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 - hypoglycemia protocol - POC blood glucose ACHS - correct regimen ordered - high dose TIDWM, based off BMI - A1C ordered - wellness educator consulted - dietitian consulted hga1c 10.4 -will add 10 units of lantus BS 208 this am. will keep regimen for now and monitor closely. 05/22- bs 190-200 (2) Supraventricular tachycardia: Code(s): I47.10 - Supraventricular tachycardia, unspecified Status: Acute Assessment and Plan: - NSR upon arrival post adenosine (6 mg and 12 mg via EMS). No previous hx of same. First occurrence. - check Magnesium and TSH -> Mag WNL - troponin: 0.019 -> 0.463 -> 1.53. Suspect elevation in troponin secondary to SVT/cardiac stress. Denies recurrence of chest pain, chest tightness, palpitations, or shortness of breath. - cardiology consulted - telemetry stable no chest pain (3) Non-STEMI (non-ST elevated myocardial infarction): Code(s): I21.4 - Non-ST elevation (NSTEMI) myocardial infarction Status: Acute Assessment and Plan: cardiology following recommendations reviewed: dose of enoxaparin 1 milligram/kilogram subQ x1. Start aspirin 81 mg p.o. daily. 2D echocardiogram Doppler be order and review. Will check a fasting lipid panel. Metoprolol tartrate 12.5 mg p.o. b.i.d. to be initiated as well as losartan 25 mg p.o. daily. Atorvastatin 20 mg daily will also be started. His elevated troponin certainly may be related to SVT and in and of itself however given the severity of symptoms, ST segment depressions anteriorly, risk factors and degree of troponin elevation, I think it is prudent to rule out occult obstructive coronary disease. Will keep NPO after midnight for cardiac cath eterization tomorrow. 05/22 - Report from cardiac cath: Attempt to PCI high-grade lesion mid RCA without success due to tortuosity and inability to pass wire.will need to be assessed for CABG. Potentially bypassed LAD and hoping for arterial graft to the RCA as well. Cardiology is working on transfer. Plan Diet: Diabetic GI Prophylaxis: n/a DVT Prophylaxis: Lovenox SQ IV fluids: None Lines/Tubes: Peripheral IV Code Status: Full code Time Spent With Patient Time with patient: 25 - 35 minutes Subjective Date/time seen: 05/22/25 11:57 Interval history: 70 y/o M with no significant known PMH presents here with chest tightness. Pt is seen and examined this morning. Cardiac cath 05/21. Report from cardiac cath: Attempt to PCI high-grade lesion mid RCA without success due to tortuosity and inability to pass wire.will need to be assessed for CABG. Potentially bypassed LAD and hoping for arterial graft to the RCA as well. Review of Systems Review of Systems: All systems reviewed & are unremarkable except as noted in HPI and below Exam Const: General: comfortable and no acute distress Other: , male, nontoxic appearance HENMT: Face/Nose/Sinus: Normal nares present Mouth: Yes moist mucous membranes Eyes: General: appearance normal, both eyes and all related structures Sclera: sclerae normal Pupils: Equal, round and reactive pupils present EOM: EOMs intact bilaterally Resp: Effort & Inspection: normal respiratory effort Auscultation: clear to auscultation bilaterally Cardio: Rate: regular rate Rhythm: regular rhythm Other: S1-S2 present without murmur, rub, ectopy GI: Other: Abdomen soft, nondistended, nontender. Normoactive bowel sounds in all quadrants. Skin: General skin exam: normal color and no rashes or lesions noted Wounds: no wounds Neuro: Cranial nerves: Yes Equal, round and reactive pupils present Speech: normal speech Motor exam (neuro): 5/5 motor strength present throughout Sensory Exam: normal sensation Other: A&O x4 Extrem: General: normal to inspection Psych: Mental Status: mental status grossly normal Affect: normal affect Other: Good insight and judgment, very pleasant Objective Data Vital Signs Vital Signs: Vital Signs - 24 hr 05/21/25 12:00 05/21/25 12:00 05/21/25 12:00 Temperature 97.9 F Pulse Rate 60 50 L Pulse Rate [Right Pedal (Dorsalis Pedis) Palpation] Respiratory Rate 20 Blood Pressure 157/82 H Pulse Oximetry 100 Oxygen Delivery Room Air 05/21/25 14:00 05/21/25 14:00 05/21/25 14:15 Temperature Pulse Rate 63 Pulse Rate [Right Pedal (Dorsalis Pedis) Palpation] 63 64 Respiratory Rate 14 Blood Pressure 144/90 H Pulse Oximetry 99 Oxygen Delivery Room Air 05/21/25 14:15 05/21/25 14:30 05/21/25 14:30 Temperature Pulse Rate 64 65 Pulse Rate [Right Pedal (Dorsalis Pedis) Palpation] 65 Respiratory Rate 15 14 Blood Pressure 132/82 148/81 H Pulse Oximetry 100 100 Oxygen Delivery Room Air Room Air 05/21/25 14:45 05/21/25 14:45 05/21/25 15:15 Temperature 97.6 F Pulse Rate 64 69 Pulse Rate [Right Pedal (Dorsalis Pedis) Palpation] 64 Respiratory Rate 16 18 Blood Pressure 138/92 H 133/83 Pulse Oximetry 99 99 Oxygen Delivery Room Air 05/21/25 16:00 05/21/25 16:00 05/21/25 16:00 Temperature 97.8 F Pulse Rate 70 71 Pulse Rate [Right Pedal (Dorsalis Pedis) Palpation] Respiratory Rate 18 Blood Pressure 169/92 H Pulse Oximetry 98 Oxygen Delivery Room Air 05/21/25 16:45 05/21/25 17:45 05/21/25 18:00 Temperature 97.7 F 98.3 F Pulse Rate 74 84 78 Pulse Rate [Right Pedal (Dorsalis Pedis) Palpation] Respiratory Rate 18 18 Blood Pressure 169/93 H 109/72 Pulse Oximetry 98 100 Oxygen Delivery 05/21/25 18:41 05/21/25 20:00 05/21/25 20:00 Temperature 97.8 F Pulse Rate 75 76 Pulse Rate [Right Pedal (Dorsalis Pedis) Palpation] Respiratory Rate 18 Blood Pressure 128/72 Pulse Oximetry 99 Oxygen Delivery Room Air 05/21/25 20:03 05/21/25 20:11 05/21/25 22:00 Temperature 98 F Pulse Rate 73 75 60 Pulse Rate [Right Pedal (Dorsalis Pedis) Palpation] Respiratory Rate 18 Blood Pressure 134/70 Pulse Oximetry 98 Oxygen Delivery 05/22/25 00:00 05/22/25 00:00 05/22/25 00:00 Temperature 97.9 F Pulse Rate 69 58 L Pulse Rate [Right Pedal (Dorsalis Pedis) Palpation] Respiratory Rate 18 Blood Pressure 134/83 Pulse Oximetry 98 Oxygen Delivery Room Air 05/22/25 02:00 05/22/25 04:00 05/22/25 04:00 Temperature Pulse Rate 64 57 L Pulse Rate [Right Pedal (Dorsalis Pedis) Palpation] Respiratory Rate Blood Pressure Pulse Oximetry Oxygen Delivery Room Air 05/22/25 05:02 05/22/25 06:00 05/22/25 08:00 Temperature 98.1 F 97.7 F Pulse Rate 66 57 L 58 L Pulse Rate [Right Pedal (Dorsalis Pedis) Palpation] Respiratory Rate 18 18 Blood Pressure 142/81 H 138/84 Pulse Oximetry 99 99 Oxygen Delivery 05/22/25 08:00 05/22/25 08:00 05/22/25 08:58 Temperature Pulse Rate 73 67 Pulse Rate [Right Pedal (Dorsalis Pedis) Palpation] Respiratory Rate Blood Pressure Pulse Oximetry Oxygen Delivery Room Air 05/22/25 10:00 05/22/25 11:52 Temperature 98.2 F Pulse Rate 56 L 58 L Pulse Rate [Right Pedal (Dorsalis Pedis) Palpation] Respiratory Rate 20 Blood Pressure 146/84 H Pulse Oximetry 100 Oxygen Delivery Intake/Output Intake/Output: Intake & Output 05/19/25 05/20/25 05/21/25 05/22/25 23:59 23:59 23:59 23:59 Intake Total 240 406 433 2928.0 Output Total 400 1000 Balance -160 -517 415 6111.0 Meds/Results Medications: Active Medications Generic Name Dose Route Start Last Admin Trade Name Freq PRN Reason Stop Dose Admin Aspirin 81 mg 05/21/25 09:00 05/22/25 08:59 Aspirin 81 Mg Enteric Tablet PO 81 mg QAM NELSY Administration Atorvastatin Calcium 20 mg 05/21/25 09:00 05/22/25 08:58 Atorvastatin 20 Mg Tablet PO 20 mg DAILY NELSY Administration Dextrose 12.5 gm 05/19/25 17:43 Dextrose 50% 25 Gm/50 Ml Syringe IV PUSH PRN PRN Hypoglycemia Protocol Glucagon 1 mg 05/19/25 17:43 Glucagon For Inj 1 Mg Vial IM PRN PRN Hypoglycemia Protocol Glucose 15 gm 05/19/25 17:43 Glucose Oral Gel 15 Gm Of Glucse In 37.5 Gm Tube PO PRN PRN Hypoglycemia Protocol Heparin Sodium (Porcine) 4,000 units 05/21/25 13:59 05/22/25 03:13 Heparin Sodium 5,000 Units/Ml Vial IV PUSH 4,000 units PRN PRN Administration aPTT less than 55 seconds Heparin Sodium (Porcine) 3,500 units 05/21/25 13:59 05/22/25 09:56 Heparin Sodium 5,000 Units/Ml Vial IV PUSH 3,500 units PRN PRN Administration aPTT 55 - 70 seconds Dextrose 1,000 mls @ 100 mls/hr 05/19/25 17:43 Dextrose 5% 1,000 Ml IVPB PRN PRN Hypoglycemia Protocol Heparin Sodium/Dextrose 25,000 units in 250 mls @ 15 mls/hr 05/21/25 20:00 05/22/25 09:56 Heparin Sodium/D5w 100 Units/Ml IV CONT 1,500 units/hr .[id number] NELSY 15 mls/hr Titration Protocol 1,500 UNITS/HR Insulin Aspart 4 - 8 units 05/20/25 08:00 05/22/25 11:47 Insulin Aspart (*Bkc) 100 Units/Ml SUB-Q 4 units TIDWM NELSY Administration Protocol Insulin Glargine 10 units 05/20/25 21:00 05/21/25 20:07 Insulin Glargine (*Bkc) 100 Units/Ml SUB-Q 10 units HS NELSY Administration Losartan Potassium 25 mg 05/21/25 09:00 05/22/25 08:58 Losartan Potassium 25 Mg Tablet PO 25 mg DAILY NELSY Administration Metoprolol Tartrate 12.5 mg 05/20/25 14:55 05/22/25 08:58 Metoprolol Tartrate 12.5 Mg Tablet PO 12.5 mg Q12HR NELSY Administration Radiology Results: ITS Impressions Chest X-Ray 05/19/25 11:57 IMPRESSION: 1: NO ACUTE CARDIOPULMONARY DISEASE. Labs Labs: Laboratory Results - last 24 hr 0805/21/25 05/21/25 14:23 16:07 20:06 WBC 5.1 RBC 4.77 Hgb 13.8 L Hct 40.5 L MCV 84.9 MCH 28.9 MCHC 34.1 RDW 12.5 Plt Count 236 MPV 8.9 Immature Gran % (Auto) 0.2 Neut % (Auto) 53.8 Lymph % (Auto) 30.9 [place] % (Auto) 11.3 H Eos % (Auto) 3.0 Baso % (Auto) 0.8 Lymph # (Auto) 1.56 [place] # (Auto) 0.6 Eos # (Auto) 0.2 Baso # (Auto) 0.0 Abs Immat Gran (auto) 0.01 Absolute Neuts (auto) 2.7 Absolute Nucleated RBC 0.000 Nucleated RBC % 0.0 PT 20.2 H D INR 1.7 APTT 82.3 H Sodium Potassium Chloride Carbon Dioxide Anion Gap BUN Creatinine Estim Creat Clear Calc Estimated GFR Glucose POC Capillary Glucose 187 H 226 H Calcium 05/22/25 05/22/25 05/22/25 01:55 01:59 07:15 WBC 6.3 RBC 4.43 L Hgb 12.9 L Hct 38.1 L MCV 86.0 MCH 29.1 MCHC 33.9 RDW 12.7 Plt Count 206 MPV 9.0 Immature Gran % (Auto) 0.2 Neut % (Auto) 48.6 Lymph % (Auto) 34.9 [place] % (Auto) 12.2 H Eos % (Auto) 3.5 Baso % (Auto) 0.6 Lymph # (Auto) 2.20 [place] # (Auto) 0.8 H Eos # (Auto) 0.2 Baso # (Auto) 0.0 Abs Immat Gran (auto) 0.01 Absolute Neuts (auto) 3.1 Absolute Nucleated RBC 0.000 Nucleated RBC % 0.0 PT INR APTT 37.8 H Sodium 133 L Potassium 4.6 Chloride 103 Carbon Dioxide 23 Anion Gap 7 BUN 16 Creatinine 1.01 Estim Creat Clear Calc 73 Estimated GFR > 60 Glucose 177 H POC Capillary Glucose 190 H Calcium 9.6 05/22/25 05/22/25 09:02 11:24 WBC RBC Hgb Hct MCV MCH MCHC RDW Plt Count MPV Immature Gran % (Auto) Neut % (Auto) Lymph % (Auto) [place] % (Auto) Eos % (Auto) Baso % (Auto) Lymph # (Auto) [place] # (Auto) Eos # (Auto) Baso # (Auto) Abs Immat Gran (auto) Absolute Neuts (auto) Absolute Nucleated RBC Nucleated RBC % PT INR APTT 67.1 H Sodium Potassium Chloride Carbon Dioxide Anion Gap BUN Creatinine Estim Creat Clear Calc Estimated GFR Glucose POC Capillary Glucose 210 H Calcium Quality VTE Prophylaxis VTE prophylaxis: pharmacologic ordered
--- NOTE | 2025-05-22 13:55 | PCDIET ---
Nutritional teaching note: Checked back with patient. 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 Also recommended heart healthy, low sodium diet. Pt verbalized understanding.
--- NOTE | 2025-05-22 15:16 | P.PNCA_ITS ---
Progress Note: A&P Assessment and Plan (1) Non-STEMI (non-ST elevated myocardial infarction): Code(s): I21.4 - Non-ST elevation (NSTEMI) myocardial infarction Status: Acute Assessment and Plan: Underwent [facility] 05/21/25. Findings are as follows: 1- left coronary artery is a large artery that divides into large LAD, large circumflex artery. Left main minimal irregularities 2- left anterior descending artery is a large artery that runs and wraps around the apex. Mid segment 90% lesion. Prior to lesion there is small to medium diagonal has 50% and diffuse irregularities. At the lesion there is a small di agonal branch with minimal irregularities. 3- left circumflex artery is a large artery. It gives rise to a medium OM1 branch that has 50% in the mid segment. 4- right coronary artery is large artery very tortuous. In the mid segment 95%. JESSIE flow 3. 5- LVEDP was 14 mm Hg and no gradient across aortic valve. 6- opening arterial pressure was 104/73 and closing pressure was 107/55 7- right femoral artery angiogram shows no significant disease in the right common femoral artery. -attempt to PCI high-grade lesion mid RCA without success due to tortuosity and inability to pass wire -will need to be assessed for CABG. Potentially bypassed LAD and hoping for arterial graft to the RCA as well. -He has been accepted to [facility] for CTS evaluation -Continue heparin drip, ASA, statin, metoprolol, losartan Subjective Date/time seen: 05/22/25 15:16 Interval history: Cardiology follow-up visit Date of service 05/22/2025: Patient is feeling well today. He is walking around his room and does not have any complaints. He denies any chest pain, shortness of breath, palpitations. He is waiting for a bed at [facility]. Review of Systems Review of Systems: All systems reviewed & are unremarkable except as noted in HPI and below Constitutional: Constitutional: Denies body ache(s) and Denies excessive sweating Eyes: Eyes: Denies blurry vision ENT: Reports Normal hearing present Cardiovascular: Cardiovascular: Reports chest pain and Reports dyspnea Respiratory: Respiratory: Reports dyspnea Gastrointestinal: Gastrointestinal: Denies abdominal pain Genitourinary: Genitourinary: Denies hematuria Musculoskeletal: Musculoskeletal: Denies back pain Integumentary/Breasts: Skin/Breast: Denies dry skin Neurologic: Reports Normal hearing present and Denies Abnormal speech present Psychiatric: Psychiatric: Denies anxiety Endocrine: Endocrine: Denies excessive sweating Hematologic/Lymphatic: Hematologic/Lymphatic: Denies easy bleeding Allergic/Immunologic: Allergic/Immunologic: Denies GI upset with certain foods Exam Narrative: Patient awake alert oriented appears stated age Const: General: comfortable and no acute distress HENMT: Ears: TM's normal bilaterally Face/Nose/Sinus: Normal nares present Mouth: Yes moist mucous membranes Eyes: General: appearance normal, both eyes and all related structures Sclera: sclerae normal Neck: Neck: supple and no JVD Chest: Other: No reproducible chest wall pain to palpation Resp: Effort & Inspection: normal respiratory effort Auscultation: clear to auscultation bilaterally Cardio: Rate: regular rate Rhythm: regular rhythm GI: Inspection: non-distended Auscultation: normal bowel sounds Skin: General skin exam: normal color and no rashes or lesions noted Neuro: Cranial nerves: Yes Normal hearing present Speech: normal speech and No Abnormal speech present Sensory Exam: normal sensation Extrem: General: normal to inspection Psych: Mental Status: mental status grossly normal Affect: normal affect Objective Data Vital Signs Vital Signs: Vital Signs - 24 hr 05/21/25 16:00 05/21/25 16:00 05/21/25 16:00 Temperature 36.6 C Pulse Rate 70 71 Respiratory Rate 18 Blood Pressure 169/92 H Pulse Oximetry 98 Oxygen Delivery Room Air 05/21/25 16:45 05/21/25 17:45 05/21/25 18:00 Temperature 36.5 C 36.8 C Pulse Rate 74 84 78 Respiratory Rate 18 18 Blood Pressure 169/93 H 109/72 Pulse Oximetry 98 100 Oxygen Delivery 05/21/25 18:41 05/21/25 20:00 05/21/25 20:00 Temperature 36.6 C Pulse Rate 75 76 Respiratory Rate 18 Blood Pressure 128/72 Pulse Oximetry 99 Oxygen Delivery Room Air 05/21/25 20:03 05/21/25 20:11 05/21/25 22:00 Temperature 36.6 C Pulse Rate 73 75 60 Respiratory Rate 18 Blood Pressure 134/70 Pulse Oximetry 98 Oxygen Delivery 05/22/25 00:00 05/22/25 00:00 05/22/25 00:00 Temperature 36.6 C Pulse Rate 69 58 L Respiratory Rate 18 Blood Pressure 134/83 Pulse Oximetry 98 Oxygen Delivery Room Air 05/22/25 02:00 05/22/25 04:00 05/22/25 04:00 Temperature Pulse Rate 64 57 L Respiratory Rate Blood Pressure Pulse Oximetry Oxygen Delivery Room Air 05/22/25 05:02 05/22/25 06:00 05/22/25 08:00 Temperature 36.7 C 36.5 C Pulse Rate 66 57 L 58 L Respiratory Rate 18 18 Blood Pressure 142/81 H 138/84 Pulse Oximetry 99 99 Oxygen Delivery 05/22/25 08:00 05/22/25 08:00 05/22/25 08:58 Temperature Pulse Rate 73 67 Respiratory Rate Blood Pressure Pulse Oximetry Oxygen Delivery Room Air 05/22/25 10:00 05/22/25 11:52 05/22/25 12:00 Temperature 36.8 C Pulse Rate 56 L 58 L 60 Respiratory Rate 20 Blood Pressure 146/84 H Pulse Oximetry 100 Oxygen Delivery 05/22/25 12:00 Temperature Pulse Rate Respiratory Rate Blood Pressure Pulse Oximetry Oxygen Delivery Room Air Intake/Output Intake/Output: Intake & Output 05/19/25 05/20/25 05/21/25 05/22/25 23:59 23:59 23:59 23:59 Intake Total 240 520 197 9765.0 Output Total 400 1000 Balance -160 -624 957 6501.0 Meds/Results Medications: Active Medications Generic Name Dose Route Start Last Admin Trade Name Freq PRN Reason Stop Dose Admin Aspirin 81 mg 05/21/25 09:00 05/22/25 08:59 Aspirin 81 Mg Enteric Tablet PO 81 mg QAM NELSY Administration Atorvastatin Calcium 20 mg 05/21/25 09:00 05/22/25 08:58 Atorvastatin 20 Mg Tablet PO 20 mg DAILY NELSY Administration Dextrose 12.5 gm 05/19/25 17:43 Dextrose 50% 25 Gm/50 Ml Syringe IV PUSH PRN PRN Hypoglycemia Protocol Glucagon 1 mg 05/19/25 17:43 Glucagon For Inj 1 Mg Vial IM PRN PRN Hypoglycemia Protocol Glucose 15 gm 05/19/25 17:43 Glucose Oral Gel 15 Gm Of Glucse In 37.5 Gm Tube PO PRN PRN Hypoglycemia Protocol Heparin Sodium (Porcine) 4,000 units 05/21/25 13:59 05/22/25 03:13 Heparin Sodium 5,000 Units/Ml Vial IV PUSH 4,000 units PRN PRN Administration aPTT less than 55 seconds Heparin Sodium (Porcine) 3,500 units 05/21/25 13:59 05/22/25 09:56 Heparin Sodium 5,000 Units/Ml Vial IV PUSH 3,500 units PRN PRN Administration aPTT 55 - 70 seconds Dextrose 1,000 mls @ 100 mls/hr 05/19/25 17:43 Dextrose 5% 1,000 Ml IVPB PRN PRN Hypoglycemia Protocol Heparin Sodium/Dextrose 25,000 units in 250 mls @ 15 mls/hr 05/21/25 20:00 05/22/25 09:56 Heparin Sodium/D5w 100 Units/Ml IV CONT 1,500 units/hr .[id number] NELSY 15 mls/hr Titration Protocol 1,500 UNITS/HR Insulin Aspart 4 - 8 units 05/20/25 08:00 05/22/25 11:47 Insulin Aspart (*Bkc) 100 Units/Ml SUB-Q 4 units TIDWM NELSY Administration Protocol Insulin Glargine 10 units 05/20/25 21:00 05/21/25 20:07 Insulin Glargine (*Bkc) 100 Units/Ml SUB-Q 10 units HS NELSY Administration Losartan Potassium 25 mg 05/21/25 09:00 05/22/25 08:58 Losartan Potassium 25 Mg Tablet PO 25 mg DAILY NELSY Administration Metoprolol Tartrate 12.5 mg 05/20/25 14:55 05/22/25 08:58 Metoprolol Tartrate 12.5 Mg Tablet PO 12.5 mg Q12HR NELSY Administration Radiology Results: ITS Impressions Chest X-Ray 05/19/25 11:57 IMPRESSION: 1: NO ACUTE CARDIOPULMONARY DISEASE. Labs Labs: Laboratory Results - last 24 hr 05/21/25 05/21/25 05/22/25 16:07 20:06 01:55 WBC RBC Hgb Hct MCV MCH MCHC RDW Plt Count MPV Immature Gran % (Auto) Neut % (Auto) Lymph % (Auto) [place] % (Auto) Eos % (Auto) Baso % (Auto) Lymph # (Auto) [place] # (Auto) Eos # (Auto) Baso # (Auto) Abs Immat Gran (auto) Absolute Neuts (auto) Absolute Nucleated RBC Nucleated RBC % APTT Sodium 133 L Potassium 4.6 Chloride 103 Carbon Dioxide 23 Anion Gap 7 BUN 16 Creatinine 1.01 Estim Creat Clear Calc 73 Estimated GFR > 60 Glucose 177 H POC Capillary Glucose 187 H 226 H Calcium 9.6 05/22/25 05/22/25 05/22/25 01:59 07:15 09:02 WBC 6.3 RBC 4.43 L Hgb 12.9 L Hct 38.1 L MCV 86.0 MCH 29.1 MCHC 33.9 RDW 12.7 Plt Count 206 MPV 9.0 Immature Gran % (Auto) 0.2 Neut % (Auto) 48.6 Lymph % (Auto) 34.9 [place] % (Auto) 12.2 H Eos % (Auto) 3.5 Baso % (Auto) 0.6 Lymph # (Auto) 2.20 [place] # (Auto) 0.8 H Eos # (Auto) 0.2 Baso # (Auto) 0.0 Abs Immat Gran (auto) 0.01 Absolute Neuts (auto) 3.1 Absolute Nucleated RBC 0.000 Nucleated RBC % 0.0 APTT 37.8 H 67.1 H Sodium Potassium Chloride Carbon Dioxide Anion Gap BUN Creatinine Estim Creat Clear Calc Estimated GFR Glucose POC Capillary Glucose 190 H Calcium 05/22/25 11:24 WBC RBC Hgb Hct MCV MCH MCHC RDW Plt Count MPV Immature Gran % (Auto) Neut % (Auto) Lymph % (Auto) [place] % (Auto) Eos % (Auto) Baso % (Auto) Lymph # (Auto) [place] # (Auto) Eos # (Auto) Baso # (Auto) Abs Immat Gran (auto) Absolute Neuts (auto) Absolute Nucleated RBC Nucleated RBC % APTT Sodium Potassium Chloride Carbon Dioxide Anion Gap BUN Creatinine Estim Creat Clear Calc Estimated GFR Glucose POC Capillary Glucose 210 H Calcium Quality VTE Prophylaxis VTE prophylaxis: pharmacologic ordered
[2025-05-22 16:40] LABS: Partial Thromboplastin Time 106.3 Seconds (22.3-36.8)
[2025-05-22] MEDS: HEPARIN SOD/D5W 100 UNITS/ML 25,000 UNITS/250 ML BAG 13 UNITS IV CONT (17:07)
[2025-05-22] MEDS: INSULIN GLARGINE (*BKC) 100 UNITS/ML 10 UNITS SUB-Q (20:04)
[2025-05-22 23:30] LABS: Partial Thromboplastin Time 68.0 Seconds (22.3-36.8)
[2025-05-23] VITALS (19 sets, daily range): BP systolic 120–178; BP diastolic 69–96; PULSE 52–70; RESP 16–20; TEMP 36.4–36.9; O2SAT 97–100
[2025-05-23 06:09] LABS: Partial Thromboplastin Time 116.7 Seconds (22.3-36.8)
--- NOTE | 2025-05-23 08:05 | P.PNIM_ITS ---
Progress Note: A&P Assessment and Plan (1) Type 2 diabetes mellitus: Qualifiers: Diabetes mellitus complication status: with hyperglycemia Diabetes mellitus exterminator helper insulin use: without penitentiary use Qualified Code(s): E11.65 - Type 2 diabetes mellitus with hyperglycemia Code(s): E11.9 - Type 2 diabetes mellitus without complications Status: Acute Assessment and Plan: No previous history of diabetes, initial glucose upon initial evaluation on 05/19 was 523. - hypoglycemia protocol - POC blood glucose ACHS - correct regimen ordered - high dose TIDWM, based off BMI - A1C ordered - music educator consulted - dietitian consulted hga1c 10.4 -will add 10 units of lantus BS 208 this am. will keep regimen for now and monitor closely. 05/22- bs 190-200 05/23 will increase lantus to 12 units to get BS below 200. monitor (2) Supraventricular tachycardia: Code(s): I47.10 - Supraventricular tachycardia, unspecified Status: Acute Assessment and Plan: - NSR upon arrival post adenosine (6 mg and 12 mg via EMS). No previous hx of same. First occurrence. - check Magnesium and TSH -> Mag WNL - troponin: 0.019 -> 0.463 -> 1.53. Suspect elevation in troponin secondary to SVT/cardiac stress. Denies recurrence of chest pain, chest tightness, palpitations, or shortness of breath. - cardiology consulted - telemetry stable no chest pain (3) Non-STEMI (non-ST elevated myocardial infarction): Code(s): I21.4 - Non-ST elevation (NSTEMI) myocardial infarction Status: Acute Assessment and Plan: cardiology following recommendations reviewed: dose of enoxaparin 1 milligram/kilogram subQ x1. Start aspirin 81 mg p.o. daily. 2D echocardiogram Doppler be order and review. Will check a fasting lip id panel. Metoprolol tartrate 12.5 mg p.o. b.i.d. to be initiated as well as losartan 25 mg p.o. daily. Atorvastatin 20 mg daily will also be started. His elevated troponin certainly may be related to SVT and in and of itself however given the severity of symptoms, ST segment depressions anteriorly, risk factors and degree of troponin elevation, I think it is prudent to rule out occult obstructive coronary disease. Will keep NPO after midnight for cardiac catheterization tomorrow. 05/22 - Report from cardiac cath: Attempt to PCI high-grade lesion mid RCA without success due to tortuosity and inability to pass wire.will need to be assessed for CABG. Potentially bypassed LAD and hoping for arterial graft to the RCA as well. Cardiology is working on transfer. 05/[address] [facility] for CABG eval. currently asymptomatic. hep drip, asa, losartan, beta benjy. monitor routine labs per protocol. tele Plan Diet: Diabetic GI Prophylaxis: n/a DVT Prophylaxis: Lovenox SQ IV fluids: None Lines/Tubes: Peripheral IV Code Status: Full code Time Spent With Patient Time with patient: 25 - 35 minutes Subjective Date/time seen: 05/23/25 08:05 Interval history: 05/23 pt is accepted to [facility]. waiting for bed. Pt is alert, oriented, no acute issues this morning-nochest pain, no sob. Heparin drip Review of Systems Review of Systems: All systems reviewed & are unremarkable except as noted in HPI and below Exam Const: General: comfortable and no acute distress Other: , male, nontoxic appearance HENMT: Face/Nose/Sinus: Normal nares present Mouth: Yes moist mucous membranes Eyes: General: appearance normal, both eyes and all related structures Sclera: sclerae normal Pupils: Equal, round and reactive pupils present EOM: EOMs intact bilaterally Resp: Effort & Inspection: normal respiratory effort Auscultation: clear to auscultation bilaterally Cardio: Rate: regular rate Rhythm: regular rhythm Other: S1-S2 present without murmur, rub, ectopy GI: Other: Abdomen soft, nondistended, nontender. Normoactive bowel sounds in all quadrants. Skin: General skin exam: normal color and no rashes or lesions noted Wounds: no wounds Neuro: Cranial nerves: Yes Equal, round and reactive pupils present Speech: normal speech Motor exam (neuro): 5/5 motor strength present throughout Sensory Exam: normal sensation Other: A&O x4 Extrem: General: normal to inspection Psych: Mental Status: mental status grossly normal Affect: normal affect Other: Good insight and judgment, very pleasant Objective Data Vital Signs Vital Signs: Vital Signs - 24 hr 05/22/25 08:58 05/22/25 10:00 05/22/25 11:52 Temperature 98.2 F Pulse Rate 67 56 L 58 L Respiratory Rate 20 Blood Pressure 146/84 H Pulse Oximetry 100 Oxygen Delivery 05/22/25 12:00 05/22/25 12:00 05/22/25 14:00 Temperature Pulse Rate 60 70 Respiratory Rate Blood Pressure Pulse Oximetry Oxygen Delivery Room Air 05/22/25 16:00 05/22/25 16:00 05/22/25 16:00 Temperature 98.2 F Pulse Rate 57 L 61 Respiratory Rate 20 Blood Pressure 139/81 Pulse Oximetry 98 Oxygen Delivery Room Air 05/22/25 18:00 05/22/25 19:56 05/22/25 20:00 Temperature 98.5 F Pulse Rate 63 63 Respiratory Rate 18 Blood Pressure 150/86 H Pulse Oximetry 100 Oxygen Delivery Room Air 05/22/25 20:00 05/22/25 20:02 05/22/25 22:00 Temperature Pulse Rate 63 75 61 Respiratory Rate Blood Pressure Pulse Oximetry Oxygen Delivery 05/22/25 23:26 05/23/25 00:00 05/23/25 00:00 Temperature Pulse Rate 55 L Respiratory Rate Blood Pressure Pulse Oximetry 100 Oxygen Delivery Room Air Room Air 05/23/25 00:02 05/23/25 02:00 05/23/25 04:00 Temperature 98.2 F Pulse Rate 57 L 58 L Respiratory Rate 20 Blood Pressure 120/86 Pulse Oximetry 99 Oxygen Delivery Room Air 05/23/25 04:00 05/23/25 04:06 05/23/25 06:00 Temperature 98.5 F Pulse Rate 67 69 62 Respiratory Rate 16 Blood Pressure 124/77 Pulse Oximetry 97 Oxygen Delivery 05/23/25 07:34 Temperature 97.5 F L Pulse Rate 52 L Respiratory Rate 18 Blood Pressure 137/69 Pulse Oximetry 99 Oxygen Delivery Intake/Output Intake/Output: Intake & Output 05/20/25 05/21/25 05/22/25 05/23/25 23:59 23:59 23:59 23:59 Intake Total 955 077 9067.4 643.8 Output Total 1000 Balance -242 464 7498.4 643.8 Meds/Results Medications: Active Medications Generic Name Dose Route Start Last Admin Trade Name Freq PRN Reason Stop Dose Admin Aspirin 81 mg 05/21/25 09:00 05/22/25 08:59 Aspirin 81 Mg Enteric Tablet PO 81 mg QAM NELSY Administration Atorvastatin Calcium 20 mg 05/21/25 09:00 05/22/25 08:58 Atorvastatin 20 Mg Tablet PO 20 mg DAILY NELSY Administration Dextrose 12.5 gm 05/19/25 17:43 Dextrose 50% 25 Gm/50 Ml Syringe IV PUSH PRN PRN Hypoglycemia Protocol Glucagon 1 mg 05/19/25 17:43 Glucagon For Inj 1 Mg Vial IM PRN PRN Hypoglycemia Protocol Glucose 15 gm 05/19/25 17:43 Glucose Oral Gel 15 Gm Of Glucse In 37.5 Gm Tube PO PRN PRN Hypoglycemia Protocol Heparin Sodium (Porcine) 4,000 units 05/21/25 13:59 05/22/25 03:13 Heparin Sodium 5,000 Units/Ml Vial IV PUSH 4,000 units PRN PRN Administration aPTT less than 55 seconds Heparin Sodium (Porcine) 3,500 units 05/21/25 13:59 05/22/25 23:56 Heparin Sodium 5,000 Units/Ml Vial IV PUSH 3,500 units PRN PRN Administration aPTT 55 - 70 seconds Dextrose 1,000 mls @ 100 mls/hr 05/19/25 17:43 Dextrose 5% 1,000 Ml IVPB PRN PRN Hypoglycemia Protocol Heparin Sodium/Dextrose 25,000 units in 250 mls @ 13 mls/hr 05/21/25 20:00 05/23/25 06:10 Heparin Sodium/D5w 100 Units/Ml IV CONT 1,300 units/hr .[id number] [facility] 13 mls/hr Titration Protocol 1,300 UNITS/HR Insulin Aspart 4 - 8 units 05/20/25 08:00 05/22/25 17:00 Insulin Aspart (*Bkc) 100 Units/Ml SUB-Q Not Given TIDWM [facility] Protocol Insulin Glargine 10 units 05/20/25 21:00 05/22/25 20:04 Insulin Glargine (*Bkc) 100 Units/Ml SUB-Q 10 units HS NELSY Administration Losartan Potassium 25 mg 05/21/25 09:00 05/22/25 08:58 Losartan Potassium 25 Mg Tablet PO 25 mg DAILY NELSY Administration Metoprolol Tartrate 12.5 mg 05/20/25 14:55 05/22/25 20:02 Metoprolol Tartrate 12.5 Mg Tablet PO 12.5 mg Q12HR NELSY Administration Radiology Results: ITS Impressions Chest X-Ray 05/19/25 11:57 IMPRESSION: 1: NO ACUTE CARDIOPULMONARY DISEASE. Labs Labs: Laboratory Results - last 24 hr 05/22/25 05/22/25 05/22/25 01:55 09:02 11:24 APTT 67.1 H Sodium 133 L Potassium 4.6 Chloride 103 Carbon Dioxide 23 Anion Gap 7 BUN 16 Creatinine 1.01 Estim Creat Clear Calc 73 Estimated GFR > 60 Glucose 177 H POC Capillary Glucose 210 H Calcium 9.6 05/22/25 05/22/25 05/22/25 16:15 16:17 20:06 APTT 106.3 H Sodium Potassium Chloride Carbon Dioxide Anion Gap BUN Creatinine Estim Creat Clear Calc Estimated GFR Glucose POC Capillary Glucose 164 H 214 H Calcium 05/22/25 05/23/25 05/23/25 23:06 05:47 07:17 APTT 68.0 H 116.7 H Sodium Potassium Chloride Carbon Dioxide Anion Gap BUN Creatinine Estim Creat Clear Calc Estimated GFR Glucose POC Capillary Glucose 207 H Calcium Quality VTE Prophylaxis VTE prophylaxis: pharmacologic ordered
[2025-05-23 08:30] LABS: Anion Gap 7 mmol/L (4-12); Blood Urea Nitrogen 15 mg/dL (9-20); Calcium 10.0 mg/dL (8.4-10.2); Carbon Dioxide 24 mmol/L (22-30); Chloride 102 mmol/L (98-107); Estimated CRCL calculation 80 ml/min; Estimated Glomerular Filt Rate > 60; Glucose 197 mg/dL (65-110); Potassium 4.5 mmol/L (3.4-5.0); Sodium 133 mmol/L (137-145)
[2025-05-23] MEDS: METOPROLOL TARTRATE 12.5 MG TABLET PO ×2 (08:50→20:53)
[2025-05-23] MEDS: INSULIN ASPART (*BKC) 100 UNITS/ML SUB-Q (08:51)
[2025-05-23] MEDS: ATORVASTATIN 20 MG TABLET PO (08:51)
[2025-05-23] MEDS: ASPIRIN 81 MG ENTERIC TABLET PO (08:51)
[2025-05-23] MEDS: LOSARTAN POTASSIUM 25 MG TABLET PO (08:51)
[2025-05-23 08:59] LABS: Hematocrit 38.6 % (42.0-52.0); Hemoglobin 12.9 g/dL (14.0-18.0); Mean Corpuscular HGB Conc 33.4 g/dl (32-36); Mean Corpuscular Hemoglobin 28.9 pg (26-34); Mean Corpuscular Volume 86.5 fl (80-100); Platelet Count Result 249 k/mm3 (150-375); Red Blood Count 4.46 M/mm3 (4.6-6.20); White Blood Count 5.5 K/mm3 (4.5-10.0)
--- NOTE | 2025-05-23 11:49 | PM.PNCARD ---
Progress Note: A&P Assessment and Plan (1) Non-STEMI (non-ST elevated myocardial infarction): Code(s): I21.4 - Non-ST elevation (NSTEMI) myocardial infarction Status: Acute Assessment and Plan: Underwent [facility] 05/21/25. Findings are as follows: 1- left coronary artery is a large artery that divides into large LAD, large circumflex artery. Left main minimal irregularities 2- left anterior descending artery is a large artery that runs and wraps around the apex. Mid segment 90% lesion. Prior to lesion there is small to medium diagonal has 50% and diffuse irregularities. At the lesion there is a small diagonal branch with minimal irregularities. 3- left circumflex artery is a large artery. It gives rise to a medium OM1 branch that has 50% in the mid segment. 4- right coronary artery is large artery very tortuous. In the mid segment 95%. JESSIE flow 3. 5- LVEDP was 14 mm Hg and no gradient across aortic valve. 6- opening arterial pressure was 104/73 and closing pressure was 107/55 7- right femoral artery angiogram shows no significant disease in the right common femoral artery. -attempt to PCI high-grade lesion mid RCA without success due to tortuosity and inability to pass wire -will need to be assessed for CABG. Potentially bypassed LAD and hoping for arterial graft to the RCA as well. -He has been accepted to [facility] for CTS evaluation -Continue heparin drip, ASA, statin, metoprolol, losartan. Asymptomatic and awaiting a bed. Creatinine 0.9 today (2) Supraventricular tachycardia: Code(s): I47.10 - Supraventricular tachycardia, unspecified Status: Acute Assessment and Plan: Continue metoprolol (3) Hypertension: Code(s): I10 - Essential (primary) hypertension Status: Acute Assessment and Plan: Better controlled but will make further adjustments as an outpatient after surgery (4) Type 2 diabetes mellitus: Qualifiers: Diabetes mellitus fci insulin use: without fci use Diabetes mellitus complication status: with hyperglycemia Qualified Code(s): E11.65 - Type 2 diabetes mellitus with hyperglycemia Code(s): E11.9 - Type 2 diabetes mellitus without complications Status: Acute Assessment and Plan: Per hospitalist Subjective Date/time seen: 05/23/25 11:49 Interval history: Cardiology follow-up visit Date of service 05/22/2025: Patient is feeling well today. He is walking around his room and does not have any complaints. He denies any chest pain, shortness of breath, palpitations. He is waiting for a bed at [facility]. Date of service 05/23/2025: No chest pain, shortness of breath. Still waiting on a bed at outside facility Review of Systems Review of Systems: All systems reviewed & are unremarkable except as noted in HPI and below Constitutional: Constitutional: Denies body ache(s) and Denies excessive sweating Eyes: Eyes: Denies blurry vision ENT: Reports Normal hearing present Cardiovascular: Cardiovascular: Reports chest pain and Reports dyspnea Respiratory: Respiratory: Reports dyspnea Gastrointestinal: Gastrointestinal: Denies abdominal pain Genitourinary: Genitourinary: Denies hematuria Musculoskeletal: Musculoskeletal: Denies back pain Integumentary/Breasts: Skin/Breast: Denies dry skin Neurologic: Reports Normal hearing present and Denies Abnormal speech present Psychiatric: Psychiatric: Denies anxiety Endocrine: Endocrine: Denies excessive sweating Hematologic/Lymphatic: Hematologic/Lymphatic: Denies easy bleeding Allergic/Immunologic: Allergic/Immunologic: Denies GI upset with certain foods Exam Narrative: Patient awake alert oriented appears stated age Const: General: comfortable and no acute distress HENMT: Ears: TM's normal bilaterally Face/Nose/Sinus: Normal nares present Mouth: Yes moist mucous membranes Eyes: General: appearance normal, both eyes and all related structures Sclera: sclerae normal Neck: Neck: supple and no JVD Chest: Other: No reproducible chest wall pain to palpation Resp: Effort & Inspection: normal respiratory effort Auscultation: clear to auscultation bilaterally Cardio: Rate: regular rate Rhythm: regular rhythm GI: Inspection: non-distended Auscultation: normal bowel sounds Skin: General skin exam: normal color and no rashes or lesions noted Neuro: Cranial nerves: Yes Normal hearing present Speech: normal speech and No Abnormal speech present Sensory Exam: normal sensation Extrem: General: normal to inspection Psych: Mental Status: mental status grossly normal Affect: normal affect Objective Data Vital Signs Vital Signs: Vital Signs - 24 hr 05/22/25 11:52 05/22/25 12:00 05/22/25 12:00 Temperature 36.8 C Pulse Rate 58 L 60 Respiratory Rate 20 Blood Pressure 146/84 H Pulse Oximetry 100 Oxygen Delivery Room Air 08/15/25 14:00 05/22/25 16:00 05/22/25 16:00 Temperature 36.8 C Pulse Rate 70 57 L 61 Respiratory Rate 20 Blood Pressure 139/81 Pulse Oximetry 98 Oxygen Delivery 05/22/25 16:00 05/22/25 18:00 05/22/25 19:56 Temperature 36.9 C Pulse Rate 63 63 Respiratory Rate 18 Blood Pressure 150/86 H Pulse Oximetry 100 Oxygen Delivery Room Air 05/22/25 20:00 05/22/25 20:00 05/22/25 20:02 Temperature Pulse Rate 63 75 Respiratory Rate Blood Pressure Pulse Oximetry Oxygen Delivery Room Air 05/22/25 22:00 05/22/25 23:26 05/23/25 00:00 Temperature Pulse Rate 61 Respiratory Rate Blood Pressure Pulse Oximetry 100 Oxygen Delivery Room Air Room Air 05/23/25 00:00 05/23/25 00:02 05/23/25 02:00 Temperature 36.8 C Pulse Rate 55 L 57 L 58 L Respiratory Rate 20 Blood Pressure 120/86 Pulse Oximetry 99 Oxygen Delivery 05/23/25 04:00 05/23/25 04:00 05/23/25 04:06 Temperature 36.9 C Pulse Rate 67 69 Respiratory Rate 16 Blood Pressure 124/77 Pulse Oximetry 97 Oxygen Delivery Room Air 05/23/25 06:00 05/23/25 07:34 05/23/25 08:00 Temperature 36.4 C L Pulse Rate 62 52 L Respiratory Rate 18 Blood Pressure 137/69 Pulse Oximetry 99 Oxygen Delivery Room Air 05/23/25 08:00 05/23/25 08:50 05/23/25 10:00 Temperature Pulse Rate 60 70 65 Respiratory Rate Blood Pressure Pulse Oximetry Oxygen Delivery Intake/Output Intake/Output: Intake & Output 05/20/25 05/21/25 05/22/25 05/23/25 23:59 23:59 23:59 23:59 Intake Total 493 976 9899.4 883.8 Output Total 1000 Balance -423 437 0217.4 883.8 Meds/Results Medications: Active Medications Generic Name Dose Route Start Last Admin Trade Name Freq PRN Reason Stop Dose Admin Aspirin 81 mg 05/21/25 09:00 05/23/25 08:51 Aspirin 81 Mg Enteric Tablet PO 81 mg QAM NELSY Administration Atorvastatin Calcium 20 mg 08/14/25 09:00 05/23/25 08:51 Atorvastatin 20 Mg Tablet PO 20 mg DAILY NELSY Administration Dextrose 12.5 gm 05/19/25 17:43 Dextrose 50% 25 Gm/50 Ml Syringe IV PUSH PRN PRN Hypoglycemia Protocol Glucagon 1 mg 05/19/25 17:43 Glucagon For Inj 1 Mg Vial IM PRN PRN Hypoglycemia Protocol Glucose 15 gm 05/19/25 17:43 Glucose Oral Gel 15 Gm Of Glucse In 37.5 Gm Tube PO PRN PRN Hypoglycemia Protocol Heparin Sodium (Porcine) 4,000 units 05/21/25 13:59 05/22/25 03:13 Heparin Sodium 5,000 Units/Ml Vial IV PUSH 4,000 units PRN PRN Administration aPTT less than 55 seconds Heparin Sodium (Porcine) 3,500 units 05/21/25 13:59 05/22/25 23:56 Heparin Sodium 5,000 Units/Ml Vial IV PUSH 3,500 units PRN PRN Administration aPTT 55 - 70 seconds Dextrose 1,000 mls @ 100 mls/hr 05/19/25 17:43 Dextrose 5% 1,000 Ml IVPB PRN PRN Hypoglycemia Protocol Heparin Sodium/Dextrose 25,000 units in 250 mls @ 13 mls/hr 05/21/25 20:00 05/23/25 06:10 Heparin Sodium/D5w 100 Units/Ml IV CONT 1,300 units/hr .[id number] [facility] 13 mls/hr Titration Protocol 1,300 UNITS/HR Insulin Aspart 4 - 8 units 05/20/25 08:00 05/23/25 11:29 Insulin Aspart (*Bkc) 100 Units/Ml SUB-Q Not Given TIDWM [facility] Protocol Insulin Glargine 12 units 05/23/25 21:00 Insulin Glargine (*Bkc) 100 Units/Ml SUB-Q HS [facility] Losartan Potassium 25 mg 05/21/25 09:00 05/23/25 08:51 Losartan Potassium 25 Mg Tablet PO 25 mg DAILY NELSY Administration Metoprolol Tartrate 12.5 mg 05/20/25 14:55 05/23/25 08:50 Metoprolol Tartrate 12.5 Mg Tablet PO 12.5 mg Q12HR NELSY Administration Radiology Results: ITS Impressions Chest X-Ray 05/19/25 11:57 IMPRESSION: 1: NO ACUTE CARDIOPULMONARY DISEASE. Labs Labs: Laboratory Results - last 24 hr 05/22/25 05/22/25 05/22/25 16:15 16:17 20:06 WBC RBC Hgb Hct MCV MCH MCHC RDW Plt Count MPV APTT 106.3 H Sodium Potassium Chloride Carbon Dioxide Anion Gap BUN Creatinine Estim Creat Clear Calc Estimated GFR Glucose POC Capillary Glucose 164 H 214 H Calcium 05/22/25 05/23/25 05/23/25 23:06 05:47 07:17 WBC 5.5 RBC 4.46 L Hgb 12.9 L Hct 38.6 L MCV 86.5 MCH 28.9 MCHC 33.4 RDW 12.8 Plt Count 249 MPV 10.2 APTT 68.0 H 116.7 H Sodium 133 L Potassium 4.5 Chloride 102 Carbon Dioxide 24 Anion Gap 7 BUN 15 Creatinine 0.92 Estim Creat Clear Calc 80 Estimated GFR > 60 Glucose 197 H POC Capillary Glucose 207 H Calcium 10.0 05/23/25 11:05 WBC RBC Hgb Hct MCV MCH MCHC RDW Plt Count MPV APTT Sodium Potassium Chloride Carbon Dioxide Anion Gap BUN Creatinine Estim Creat Clear Calc Estimated GFR Glucose POC Capillary Glucose 163 H Calcium
[2025-05-23 12:23] LABS: Partial Thromboplastin Time 72.4 Seconds (22.3-36.8)
[2025-05-23] MEDS: HEPARIN SOD/D5W 100 UNITS/ML 25,000 UNITS/250 ML BAG 13 UNITS IV CONT (13:04)
[2025-05-23 19:08] LABS: Partial Thromboplastin Time 64.1 Seconds (22.3-36.8)
[2025-05-23] MEDS: INSULIN GLARGINE (*BKC) 100 UNITS/ML 12 UNITS SUB-Q (20:52)
[2025-05-24] VITALS (14 sets, daily range): BP systolic 123–154; BP diastolic 77–80; PULSE 47–67; RESP 18; TEMP 36.6–36.9; O2SAT 99–100
[2025-05-24 00:43] LABS: Partial Thromboplastin Time 118.5 Seconds (22.3-36.8)
[2025-05-24] MEDS: HEPARIN SOD/D5W 100 UNITS/ML 25,000 UNITS/250 ML BAG 14 UNITS IV CONT (07:20)
[2025-05-24 07:21] LABS: Partial Thromboplastin Time 89.9 Seconds (22.3-36.8)
[2025-05-24] MEDS: METOPROLOL TARTRATE 12.5 MG TABLET PO (07:59)
[2025-05-24] MEDS: ASPIRIN 81 MG ENTERIC TABLET PO (07:59)
[2025-05-24] MEDS: ATORVASTATIN 20 MG TABLET PO (07:59)
[2025-05-24] MEDS: LOSARTAN POTASSIUM 25 MG TABLET PO (07:59)
--- NOTE | 2025-05-24 07:59 | P.PNIM_ITS ---
Progress Note: A&P Assessment and Plan (1) Type 2 diabetes mellitus: Qualifiers: Diabetes mellitus terminal operations supervisor insulin use: without intermediate use Diabetes mellitus complication status: with hyperglycemia Qualified Code(s): E11.65 - Type 2 diabetes mellitus with hyperglycemia Code(s): E11.9 - Type 2 diabetes mellitus without complications Status: Acute Assessment and Plan: No previous history of diabetes, initial glucose upon initial evaluation on 05/19 was 523. - hypoglycemia protocol - POC blood glucose ACHS - correct regimen ordered - high dose TIDWM, based off BMI - A1C ordered - natural resources extension educator consulted - dietitian consulted hga1c 10.4 -will add 10 units of lantus BS 208 this am. will keep regimen for now and monitor closely. 05/22- bs 190-200 05/23 will increase lantus to 12 units to get BS below 200. monitor 05/24 bs 197 this am. continue therapy (2) Supraventricular tachycardia: Code(s): I47.10 - Supraventricular tachycardia, unspecified Status: Acute Assessment and Plan: - NSR upon arrival post adenosine (6 mg and 12 mg via EMS). No previous hx of sa me. First occurrence. - check Magnesium and TSH -> Mag WNL - troponin: 0.019 -> 0.463 -> 1.53. Suspect elevation in troponin secondary to SVT/cardiac stress. Denies recurrence of chest pain, chest tightness, palpitations, or shortness of breath. - cardiology consulted - telemetry stable no chest pain tele transfer pending (3) Non-STEMI (non-ST elevated myocardial infarction): Code(s): I21.4 - Non-ST elevation (NSTEMI) myocardial infarction Status: Acute Assessment and Plan: cardiology following recommendations reviewed: dose of enoxaparin 1 milligram/kilogram subQ x1. Start aspirin 81 mg p.o. daily. 2D echocardiogram Doppler be order and review. Will check a fasting lipid panel. Metoprolol tartrate 12.5 mg p.o. b.i.d. to be initiated as well as losartan 25 mg p.o. daily. Atorvastatin 20 mg daily will also be started. His elevated troponin certainly may be related to SVT and in and of itself however given the severity of symptoms, ST segment depressions anteriorly, risk factors and degree of troponin elevation, I think it is prudent to rule out occult obstructive coronary disease. Will keep NPO after midnight for cardiac catheterization tomorrow. 05/22 - Report from cardiac cath: Attempt to PCI high-grade lesion mid RCA without success due to tortuosity and inability to pass wire.will need to be assessed for CABG. Potentially bypassed LAD and hoping for arterial graft to the RCA as well. Cardiology is working on transfer. 05/23 accepted to [facility] for CABG eval. currently asymptomatic. hep drip, asa, losartan, beta benjy. monitor routine labs per protocol. tele Plan Diet: Diabetic GI Prophylaxis: n/a DVT Prophylaxis: Lovenox SQ IV fluids: None Lines/Tubes: Peripheral IV Code Status: Full code Time Spent With Patient Time with patient: 25 - 35 minutes Subjective Date/time seen: 05/24/25 07:59 Interval history: Pt is seen and examined. He is ambulatory, no chest pain, shortness of breath. Still waiting on a bed at [facility]. Review of Systems Review of Systems: All systems reviewed & are unremarkable except as noted in HPI and below Exam Const: General: comfortable and no acute distress Other: , male, nontoxic appearance HENMT: Face/Nose/Sinus: Normal nares present Mouth: Yes moist mucous membranes Eyes: General: appearance normal, both eyes and all related structures Sclera: sclerae normal Pupils: Equal, round and reactive pupils present EOM: EOMs intact bilaterally Resp: Effort & Inspection: normal respiratory effort Auscultation: clear to auscultation bilaterally Cardio: Rate: regular rate Rhythm: regular rhythm Other: S1-S2 present without murmur, rub, ectopy GI: Other: Abdomen soft, nondistended, nontender. Normoactive bowel sounds in all quadrants. Skin: General skin exam: normal color and no rashes or lesions noted Wounds: no wounds Neuro: Cranial nerves: Yes Equal, round and reactive pupils present Speech: normal speech Motor exam (neuro): 5/5 motor strength present throughout Sensory Exam: normal sensation Other: A&O x4 Extrem: General: normal to inspection Psych: Mental Status: mental status grossly normal Affect: normal affect Other: Good insight and judgment, very pleasant Objective Data Vital Signs Vital Signs: Vital Signs - 24 hr 05/23/25 08:00 05/23/25 08:00 05/23/25 08:50 Temperature Pulse Rate 60 70 Respiratory Rate Blood Pressure Pulse Oximetry Oxygen Delivery Room Air 05/23/25 10:00 05/23/25 11:56 05/23/25 12:00 Temperature 97.7 F Pulse Rate 65 53 L Respiratory Rate 18 Blood Pressure 144/96 H Pulse Oximetry 100 Oxygen Delivery Room Air 05/23/25 12:00 05/23/25 14:00 05/23/25 16:00 Temperature 98.5 F Pulse Rate 58 L 67 52 L Respiratory Rate 18 Blood Pressure 147/81 H Pulse Oximetry 100 Oxygen Delivery 05/23/25 16:00 05/23/25 16:00 05/23/25 18:00 Temperature Pulse Rate 53 L 58 L Respiratory Rate Blood Pressure Pulse Oximetry Oxygen Delivery Room Air 05/23/25 19:40 05/23/25 20:00 05/23/25 20:53 Temperature 98.3 F Pulse Rate 61 56 L 60 Respiratory Rate 20 Blood Pressure 178/78 H Pulse Oximetry 100 Oxygen Delivery 05/23/25 22:00 05/24/25 00:00 05/24/25 00:09 Temperature 97.9 F Pulse Rate 54 L 60 57 L Respiratory Rate 18 Blood Pressure 123/78 Pulse Oximetry 100 Oxygen Delivery 05/24/25 02:00 05/24/25 04:00 05/24/25 04:00 Temperature 97.9 F Pulse Rate 52 L 63 67 Respiratory Rate 18 Blood Pressure 138/78 Pulse Oximetry 99 Oxygen Delivery 05/24/25 05:58 05/24/25 07:49 Temperature 97.9 F Pulse Rate 51 L 64 Respiratory Rate 18 Blood Pressure 154/80 H Pulse Oximetry 100 Oxygen Delivery Intake/Output Intake/Output: Intake & Output 05/21/25 05/22/25 05/23/25 05/24/25 23:59 23:59 23:59 23:59 Intake Total 240 3748.4 1751.8 929.8 Balance 240 3748.4 1751.8 929.8 Meds/Results Medications: Active Medications Generic Name Dose Route Start Last Admin Trade Name Freq PRN Reason Stop Dose Admin Aspirin 81 mg 05/21/25 09:00 05/23/25 08:51 Aspirin 81 Mg Enteric Tablet PO 81 mg QAM NELSY Administration Atorvastatin Calcium 20 mg 05/21/25 09:00 05/23/25 08:51 Atorvastatin 20 Mg Tablet PO 20 mg DAILY NELSY Administration Dextrose 12.5 gm 05/19/25 17:43 Dextrose 50% 25 Gm/50 Ml Syringe IV PUSH PRN PRN Hypoglycemia Protocol Glucagon 1 mg 05/19/25 17:43 Glucagon For Inj 1 Mg Vial IM PRN PRN Hypoglycemia Protocol Glucose 15 gm 05/19/25 17:43 Glucose Oral Gel 15 Gm Of Glucse In 37.5 Gm Tube PO PRN PRN Hypoglycemia Protocol Heparin Sodium (Porcine) 4,000 units 05/21/25 13:59 05/22/25 03:13 Heparin Sodium 5,000 Units/Ml Vial IV PUSH 4,000 units PRN PRN Administration aPTT less than 55 seconds Heparin Sodium (Porcine) 3,500 units 05/21/25 13:59 05/23/25 19:16 Heparin Sodium 5,000 Units/Ml Vial IV PUSH 3,500 units PRN PRN Administration aPTT 55 - 70 seconds Dextrose 1,000 mls @ 100 mls/hr 05/19/25 17:43 Dextrose 5% 1,000 Ml IVPB PRN PRN Hypoglycemia Protocol Heparin Sodium/Dextrose 25,000 units in 250 mls @ 14 mls/hr 05/21/25 20:00 05/24/25 07:20 Heparin Sodium/D5w 100 Units/Ml IV CONT 1,400 units/hr .[id number] NELSY 14 mls/hr Administration Protocol 1,400 UNITS/HR Insulin Aspart 4 - 8 units 05/20/25 08:00 05/23/25 16:15 Insulin Aspart (*Bkc) 100 Units/Ml SUB-Q Not Given TIDWM [facility] Protocol Insulin Glargine 12 units 05/23/25 21:00 05/23/25 20:52 Insulin Glargine (*Bkc) 100 Units/Ml SUB-Q 12 units HS NELSY Administration Losartan Potassium 25 mg 05/21/25 09:00 05/23/25 08:51 Losartan Potassium 25 Mg Tablet PO 25 mg DAILY NELSY Administration Metoprolol Tartrate 12.5 mg 05/20/25 14:55 05/23/25 20:53 Metoprolol Tartrate 12.5 Mg Tablet PO 12.5 mg Q12HR NELSY Administration Radiology Results: ITS Impressions Chest X-Ray 05/19/25 11:57 IMPRESSION: 1: NO ACUTE CARDIOPULMONARY DISEASE. Labs Labs: Laboratory Results - last 24 hr 05/23/25 05/23/25 05/23/25 05:47 11:05 11:59 WBC 5.5 RBC 4.46 L Hgb 12.9 L Hct 38.6 L MCV 86.5 MCH 28.9 MCHC 33.4 RDW 12.8 Plt Count 249 MPV 10.2 APTT 72.4 H Sodium 133 L Potassium 4.5 Chloride 102 Carbon Dioxide 24 Anion Gap 7 BUN 15 Creatinine 0.92 Estim Creat Clear Calc 80 Estimated GFR > 60 Glucose 197 H POC Capillary Glucose 163 H Calcium 10.0 05/23/25 05/23/25 05/23/25 16:14 18:49 20:29 WBC RBC Hgb Hct MCV MCH MCHC RDW Plt Count MPV APTT 64.1 H Sodium Potassium Chloride Carbon Dioxide Anion Gap BUN Creatinine Estim Creat Clear Calc Estimated GFR Glucose POC Capillary Glucose 166 H 177 H Calcium 05/24/25 05/24/25 05/24/25 00:16 06:58 07:17 WBC RBC Hgb Hct MCV MCH MCHC RDW Plt Count MPV APTT 118.5 H 89.9 H Sodium Potassium Chloride Carbon Dioxide Anion Gap BUN Creatinine Estim Creat Clear Calc Estimated GFR Glucose POC Capillary Glucose 188 H Calcium Quality VTE Prophylaxis VTE prophylaxis: pharmacologic ordered
[2025-05-24 08:42] LABS: Anion Gap 10 mmol/L (4-12); Blood Urea Nitrogen 15 mg/dL (9-20); Calcium 10.2 mg/dL (8.4-10.2); Carbon Dioxide 25 mmol/L (22-30); Chloride 102 mmol/L (98-107); Estimated CRCL calculation 77 ml/min; Estimated Glomerular Filt Rate > 60; Glucose 168 mg/dL (65-110); Potassium 4.6 mmol/L (3.4-5.0); Sodium 137 mmol/L (137-145)
[2025-05-24 08:44] LABS: Hematocrit 38.7 % (42.0-52.0); Hemoglobin 13.0 g/dL (14.0-18.0); Mean Corpuscular HGB Conc 33.6 g/dl (32-36); Mean Corpuscular Hemoglobin 29.0 pg (26-34); Mean Corpuscular Volume 86.2 fl (80-100); Platelet Count Result 229 k/mm3 (150-375); Red Blood Count 4.49 M/mm3 (4.6-6.20); White Blood Count 5.1 K/mm3 (4.5-10.0)
--- NOTE | 2025-05-24 11:18 | PM.PNCARD ---
Progress Note: A&P Assessment and Plan (1) Non-STEMI (non-ST elevated myocardial infarction): Code(s): I21.4 - Non-ST elevation (NSTEMI) myocardial infarction Status: Acute Assessment and Plan: Underwent [facility] 05/21/25. Findings are as follows: 1- left coronary artery is a large artery that divides into large LAD, large circumflex artery. Left main minimal irregularities 2- left anterior descending artery is a large artery that runs and wraps around the apex. Mid segment 90% lesion. Prior to lesion there is small to medium diagonal has 50% and diffuse irregularities. At the lesion there is a small diagonal branch with minimal irregularities. 3- left circumflex artery is a large artery. It gives rise to a medium OM1 branch that has 50% in the mid segment. 4- right coronary artery is large artery very tortuous. In the mid segment 95%. JESSIE flow 3. 5- LVEDP was 14 mm Hg and no gradient across aortic valve. 6- opening arterial pressure was 104/73 and closing pressure was 107/55 7- right femoral artery angiogram shows no significant disease in the right common femoral artery. -attempt to PCI high-grade lesion mid RCA without success due to tortuosity and inability to pass wire -will need to be assessed for CABG. Potentially bypassed LAD and hoping for arterial graft to the RCA as well. -He has been accepted to [facility] for CTS evaluation -Continue heparin drip, ASA, statin, metoprolol, losartan. Asymptomatic and awaiting a bed. Electrolytes stable (2) Supraventricular tachycardia: Code(s): I47.10 - Supraventricular tachycardia, unspecified Status: Acute Assessment and Plan: Continue metoprolol. Potassium today 4.6 (3) Hypertension: Code(s): I10 - Essential (primary) hypertension Status: Acute Assessment and Plan: Better controlled but will make further adjustments as an outpatient after surgery. Patient is bradycardic at times. Unable kristin push beta benjy much further (4) Type 2 diabetes mellitus: Qualifiers: Diabetes mellitus parts counterman insulin use: without parts counterman use Diabetes mellitus complication status: with hyperglycemia Qualified Code(s): E11.65 - Type 2 diabetes mellitus with hyperglycemia Code(s): E11.9 - Type 2 diabetes mellitus without complications Status: Acute Assessment and Plan: Per hospitalist Subjective Date/time seen: 05/24/25 11:18 Interval history: Cardiology follow-up visit Date of service 05/22/2025: Patient is feeling well today. He is walking around his room and does not have any complaints. He denies any chest pain, shortness of breath, palpitations. He is waiting for a bed at [facility]. Date of service 05/23/2025: No chest pain, shortness of breath. Still waiting on a bed at outside facility DATE OF SERVICE 05/24/2025: NO CHANGES. STILL WAITING TRANSFER. No chest pain shortness of breath Review of Systems Review of Systems: All systems reviewed & are unremarkable except as noted in HPI and below Eyes: Eyes: Denies blurry vision Cardiovascular: Cardiovascular: Denies chest pain Respiratory: Respiratory: Denies chest congestion Gastrointestinal: Gastrointestinal: Denies abdominal pain Exam Narrative: Patient awake alert oriented appears stated age Const: General: comfortable and no acute distress HENMT: Ears: TM's normal bilaterally Face/Nose/Sinus: Normal nares present Mouth: Yes moist mucous membranes Eyes: General: appearance normal, both eyes and all related structures Sclera: sclerae normal Neck: Neck: supple and no JVD Chest: Other: No reproducible chest wall pain to palpation Resp: Effort & Inspection: normal respiratory effort Auscultation: clear to auscultation bilaterally Cardio: Rate: regular rate Rhythm: regular rhythm GI: Inspection: non-distended Auscultation: normal bowel sounds Skin: General skin exam: normal color and no rashes or lesions noted Neuro: Cranial nerves: Yes Normal hearing present Speech: normal speech and No Abnormal speech present Sensory Exam: normal sensation Extrem: General: normal to inspection Psych: Mental Status: mental status grossly normal Affect: normal affect Objective Data Vital Signs Vital Signs: Vital Signs - 24 hr 05/23/25 11:56 05/23/25 12:00 05/23/25 12:00 Temperature 36.5 C Pulse Rate 53 L 58 L Respiratory Rate 18 Blood Pressure 144/96 H Pulse Oximetry 100 Oxygen Delivery Room Air 05/23/25 14:00 05/23/25 16:00 05/23/25 16:00 Temperature 36.9 C Pulse Rate 67 52 L Respiratory Rate 18 Blood Pressure 147/81 H Pulse Oximetry 100 Oxygen Delivery Room Air 05/23/25 16:00 05/23/25 18:00 05/23/25 19:40 Temperature 36.8 C Pulse Rate 53 L 58 L 61 Respiratory Rate 20 Blood Pressure 178/78 H Pulse Oximetry 100 Oxygen Delivery 05/23/25 20:00 05/23/25 20:53 05/23/25 22:00 Temperature Pulse Rate 56 L 60 54 L Respiratory Rate Blood Pressure Pulse Oximetry Oxygen Delivery 05/24/25 00:00 05/24/25 00:09 05/24/25 02:00 Temperature 36.6 C Pulse Rate 60 57 L 52 L Respiratory Rate 18 Blood Pressure 123/78 Pulse Oximetry 100 Oxygen Delivery 05/24/25 04:00 05/24/25 04:00 05/24/25 05:58 Temperature 36.6 C Pulse Rate 63 67 51 L Respiratory Rate 18 Blood Pressure 138/78 Pulse Oximetry 99 Oxygen Delivery 05/24/25 07:49 05/24/25 07:59 05/24/25 08:00 Temperature 36.6 C Pulse Rate 64 65 Respiratory Rate 18 Blood Pressure 154/80 H Pulse Oximetry 100 100 Oxygen Delivery Room Air 05/24/25 08:00 05/24/25 10:00 Temperature Pulse Rate 66 49 L Respiratory Rate Blood Pressure Pulse Oximetry Oxygen Delivery Intake/Output Intake/Output: Intake & Output 05/21/25 05/22/25 05/23/25 05/24/25 23:59 23:59 23:59 23:59 Intake Total 240 3748.4 1751.8 1169.8 Balance 240 3748.4 1751.8 1169.8 Meds/Results Medications: Active Medications Generic Name Dose Route Start Last Admin Trade Name Freq PRN Reason Stop Dose Admin Aspirin 81 mg 05/21/25 09:00 05/24/25 07:59 Aspirin 81 Mg Enteric Tablet PO 81 mg QAM NELSY Administration Atorvastatin Calcium 20 mg 05/21/25 09:00 05/24/25 07:59 Atorvastatin 20 Mg Tablet PO 20 mg DAILY NELSY Administration Dextrose 12.5 gm 05/19/25 17:43 Dextrose 50% 25 Gm/50 Ml Syringe IV PUSH PRN PRN Hypoglycemia Protocol Glucagon 1 mg 05/19/25 17:43 Glucagon For Inj 1 Mg Vial IM PRN PRN Hypoglycemia Protocol Glucose 15 gm 05/19/25 17:43 Glucose Oral Gel 15 Gm Of Glucse In 37.5 Gm Tube PO PRN PRN Hypoglycemia Protocol Heparin Sodium (Porcine) 4,000 units 05/21/25 13:59 05/22/25 03:13 Heparin Sodium 5,000 Units/Ml Vial IV PUSH 4,000 units PRN PRN Administration aPTT less than 55 seconds Heparin Sodium (Porcine) 3,500 units 05/21/25 13:59 05/23/25 19:16 Heparin Sodium 5,000 Units/Ml Vial IV PUSH 3,500 units PRN PRN Administration aPTT 55 - 70 seconds Dextrose 1,000 mls @ 100 mls/hr 05/19/25 17:43 Dextrose 5% 1,000 Ml IVPB PRN PRN Hypoglycemia Protocol Heparin Sodium/Dextrose 25,000 units in 250 mls @ 14 mls/hr 05/21/25 20:00 05/24/25 07:20 Heparin Sodium/D5w 100 Units/Ml IV CONT 1,400 units/hr .[id number] NELSY 14 mls/hr Administration Protocol 1,400 UNITS/HR Insulin Aspart 4 - 8 units 05/20/25 08:00 05/24/25 07:59 Insulin Aspart (*Bkc) 100 Units/Ml SUB-Q Not Given TIDWM [facility] Protocol Insulin Glargine 12 units 05/23/25 21:00 05/23/25 20:52 Insulin Glargine (*Bkc) 100 Units/Ml SUB-Q 12 units HS NELSY Administration Losartan Potassium 25 mg 05/21/25 09:00 05/24/25 07:59 Losartan Potassium 25 Mg Tablet PO 25 mg DAILY NELSY Administration Metoprolol Tartrate 12.5 mg 05/20/25 14:55 05/24/25 07:59 Metoprolol Tartrate 12.5 Mg Tablet PO 12.5 mg Q12HR NELSY Administration Radiology Results: ITS Impressions Chest X-Ray 05/19/25 11:57 IMPRESSION: 1: NO ACUTE CARDIOPULMONARY DISEASE. Labs Labs: Laboratory Results - last 24 hr 05/23/25 05/23/25 05/23/25 11:05 11:59 16:14 WBC RBC Hgb Hct MCV MCH MCHC RDW Plt Count MPV APTT 72.4 H Sodium Potassium Chloride Carbon Dioxide Anion Gap BUN Creatinine Estim Creat Clear Calc Estimated GFR Glucose POC Capillary Glucose 163 H 166 H Calcium 05/23/25 05/23/25 05/24/25 18:49 20:29 00:16 WBC RBC Hgb Hct MCV MCH MCHC RDW Plt Count MPV APTT 64.1 H 118.5 H Sodium Potassium Chloride Carbon Dioxide Anion Gap BUN Creatinine Estim Creat Clear Calc Estimated GFR Glucose POC Capillary Glucose 177 H Calcium 05/24/25 05/24/25 06:58 07:17 WBC 5.1 RBC 4.49 L Hgb 13.0 L Hct 38.7 L MCV 86.2 MCH 29.0 MCHC 33.6 RDW 12.7 Plt Count 229 MPV 10.0 APTT 89.9 H Sodium 137 Potassium 4.6 Chloride 102 Carbon Dioxide 25 Anion Gap 10 BUN 15 Creatinine 0.95 Estim Creat Clear Calc 77 Estimated GFR > 60 Glucose 168 H POC Capillary Glucose 188 H Calcium 10.2
[2025-05-24 13:19] LABS: Partial Thromboplastin Time 64.2 Seconds (22.3-36.8)
--- NOTE | 2025-05-24 17:53 | PC.NURSE ---
Patient is transferring to [facility] for evaluation for CABG. Bed assigned 1312B. Report called to MILNID Mcdaniel at [phone] @ [phone]. Patient continues to rest in room sitting in chair and voices no complaints or concerns at this time. Denies CP, SOB, Lightheadedness or dizziness. Call light in reach. Will continue to monitor. Annalise Evans RN
--- NOTE | 2025-05-25 08:09 | P.TS_ITS ---
Transfer Discharge Sum: Prov Provider Date of admission: 05/20/25 14:46 Primary care physician: Enriqueta Jara MD Admitting clinician: Quinn Chamorro MD Attending physician on admission: Earlene Durand Consults: 05/19/25 Consult to Dietitian Routine Reason for Consult:: New onset diabetes Consult to Physician Routine Comment: Called office and notified them of consult Consulting Provider: Leonel Crawford teacher physically impaired/MD group to consult: cardiology Reason for consultation: SVT, elevated troponin Has provider been notified: Yes Attending physician on discharge: Leonel Crawford Discharging clinician: Jennifer Hadley Anticipated date of transfer: 05/24/25 Receiving physician/facility: [facility] DS: Admitting Diagnosis Discharge Date 05/24/25 Admitting Diagnosis chest pain, NSTEMI DS: Discharge Diagnosis Discharge Diagnosis (1) Type 2 diabetes mellitus: Qualifiers: Diabetes mellitus fci insulin use: without long distance operator use Diabetes mellitus complication status: with hyperglycemia Qualified Code(s): E11.65 - Type 2 diabetes mellitus with hyperglycemia Code(s): E11.9 - Type 2 diabetes mellitus without complications Status: Acute (2) Supraventricular tachycardia: Code(s): I47.10 - Supraventricular tachycardia, unspecified Status: Acute (3) Non-STEMI (non-ST elevated myocardial infarction): Code(s): I21.4 - Non-ST elevation (NSTEMI) myocardial infarction Status: Acute Transfer Discharge Sum: Med Medications Active and Home Medications: Home Medications No Home Medications 05/19/25 [History Confirmed 05/19/25] Transfer Discharge Sum: Hosp Hospital Course Hospital course: Spenser Robbins is a 70 year old male with no significant history admitted for chest tightness. Cardiology was consulted and pt underwent LNC 05/21/25. See findings per cardiology note: 1- left coronary artery is a large artery that divides into large LAD, large circumflex artery. Left main minimal irregularities 2- left anterior descending artery is a large artery that runs and wraps around the apex. Mid segment 90% lesion. Prior to lesion there is small to medium diagonal has 50% and diffuse irregularities. At the lesion there is a small diagonal branch with minimal irregularities. 3- left circumflex artery is a large artery. It gives rise to a medium OM1 branch that has 50% in the mid segment. 4- right coronary artery is large artery very tortuous. In the mid segment 95%. JESSIE flow 3. 5- LVEDP was 14 mm Hg and no gradient across aortic valve. 6- opening arterial pressure was 104/73 and closing pressure was 107/55 7- right femoral artery angiogram shows no significant disease in the right common femoral artery. -attempt to PCI high-grade lesion mid RCA without success due to tortuosity and inability to pass wire -will need to be assessed for CABG. Potentially bypassed LAD and hoping for arterial graft to the RCA as well. -He has been accepted to [facility] for CTS evaluation -Continue heparin drip, ASA, statin, metoprolol, losartan. Asymptomatic and awaiting a bed. Electrolytes stable # Supraventricular tachycardia Continue metoprolol. k/mg stable #t2dm No previous history of diabetes, initial glucose upon initial evaluation on 05/19 was 523. dietitian/diabetic educatore consulted hga1c 10.4 -SS, 12 units of lantus at hs Patient Condition: Stable Time Spent with Patient Time attestation: Total time spent providing and/or coordinating transfer services: Total time spent: Greater than 30 minutes Exam Const: General: comfortable and no acute distress Other: , male, nontoxic appearance HENMT: Face/Nose/Sinus: Normal nares present Mouth: Yes moist mucous membranes Eyes: General: appearance normal, both eyes and all related structures Sclera: sclerae normal Pupils: Equal, round and reactive pupils present EOM: EOMs intact bilaterally Resp: Effort & Inspection: normal respiratory effort Auscultation: clear to auscultation bilaterally Cardio: Rate: regular rate Rhythm: regular rhythm Other: S1-S2 present without murmur, rub, ectopy GI: Other: Abdomen soft, nondistended, nontender. Normoactive bowel sounds in all quadrants. Skin: General skin exam: normal color and no rashes or lesions noted Wounds: no wounds Neuro: Cranial nerves: Yes Equal, round and reactive pupils present Speech: normal speech Motor exam (neuro): 5/5 motor strength present throughout Sensory Exam: normal sensation Other: A&O x4 Extrem: General: normal to inspection Psych: Mental Status: mental status grossly normal Affect: normal affect Other: Good insight and judgment, very pleasant DS: Data Data Completed and Pending Completed studies during hospitalization: card cath Labs on day of discharge: Labs from last 24 hours 05/24/25 05/24/25 05/24/25 16:39 12:47 11:28 WBC RBC Hgb Hct MCV MCH MCHC RDW Plt Count MPV APTT 64.2 H Sodium Potassium Chloride Carbon Dioxide Anion Gap BUN Creatinine Estim Creat Clear Calc Estimated GFR Glucose POC Capillary Glucose 145 H 170 H Calcium 05/24/25 06:58 WBC 5.1 RBC 4.49 L Hgb 13.0 L Hct 38.7 L MCV 86.2 MCH 29.0 MCHC 33.6 RDW 12.7 Plt Count 229 MPV 10.0 APTT Sodium 137 Potassium 4.6 Chloride 102 Carbon Dioxide 25 Anion Gap 10 BUN 15 Creatinine 0.95 Estim Creat Clear Calc 77 Estimated GFR > 60 Glucose 168 H POC Capillary Glucose Calcium 10.2
--- NOTE | 2025-06-01 16:11 | PCCDE ---
06/01/: 16:10 - DM Educator courtesy follow up call placed. Apparently he was in bed stating he woke up for the call. Denies any DM needs, states to having outpatient information prn; has PCP follow up appt.
== END 2025-05-24 19:04 | disposition short-term general hospital (02) | DRG 281 ==
LOC: ANHED 13:12 → ANH3MEDSUR 13:37 → ANHIMU 16:48
PROVIDERS: Internal Medicine; Internal Medicine Cardiovascular Disease; Nurse Practitioner; Nurse Practitioner Adult Health; Student in an Organized Health Care Education/Training Program; Admitting Provider General Practice; Emergency Provider Emergency Medicine; PCP Family Medicine; Visit Provider Nurse Practitioner
PROC: 4A023N7 Measurement of Cardiac Sampling and Pressure, Left Heart, Percutaneous Approach (ICD-10-PCS; CPT 93452; principal; 2025-05-21 13:15)
PROC: 4A023N7 Measurement of Cardiac Sampling and Pressure, Left Heart, Percutaneous Approach (ICD-10-PCS; 2025-05-21 13:15)
PROC: 02703ZZ Dilation of Coronary Artery, One Artery, Percutaneous Approach (ICD-10-PCS; CPT 92920; 2025-05-21 13:15)
DX: I21.4 Non-ST elevation (NSTEMI) myocardial infarction (principal); I47.10 Supraventricular tachycardia, unspecified; E11.65 Type 2 diabetes mellitus with hyperglycemia; I10 Essential (primary) hypertension
CPT/HCPCS: 36415; 71046; 80048; 80053; 80061; 82948; 83036; 83690; 83735; 84443; 84484; 85025; 85027; 85610; 85730; 92920; 93005; 93306; 93458; 96372; 96374; 96375; 99285; A9270; C1760; C1769; C1887; C1894; G0269; G0378; J0583; J1644; J1650; J1815; J2003; J2250; J2305; J3010; J7030; J7040

== ENCOUNTER 2025-06-11 10:11 | Outpatient (CLI) | payer MEDICARE, SELFPAY ==
[2025-06-11 13:23] LABS: Anion Gap 7 mmol/L (4-12); Blood Urea Nitrogen 19 mg/dL (9-20); Calcium 9.6 mg/dL (8.4-10.2); Carbon Dioxide 24 mmol/L (22-30); Chloride 98 mmol/L (98-107); Estimated Glomerular Filt Rate > 60; Glucose 314 mg/dL (65-110); Potassium 5.0 mmol/L (3.4-5.0); Sodium 129 mmol/L (137-145)
== END 2025-06-11 10:12 | disposition home or self-care (01) ==
LOC: ANHGOSHLAB 10:12
PROVIDERS: PCP Family Medicine; Visit Provider Family Medicine
DX: E11.65 Type 2 diabetes mellitus with hyperglycemia (principal); Z79.4 Long term (current) use of insulin
CPT/HCPCS: 36415; 80048

== ENCOUNTER 2025-08-07 08:00 | Outpatient (RCR) | payer MEDICARE, SELFPAY ==
[2025-07-13 14:00] VITALS: BP 109/71; PULSE 69; RESP 16; O2SAT 99; BMI 29.2
== END 2025-08-07 13:53 | disposition home or self-care (01) ==
PROVIDERS: PCP Family Medicine; Referring Provider Internal Medicine Cardiovascular Disease; Visit Provider Internal Medicine Cardiovascular Disease
DX: Z95.1 Presence of aortocoronary bypass graft (principal)
CPT/HCPCS: 93798

== ENCOUNTER 2025-09-22 07:57 | Outpatient (CLI) | payer MEDICARE, SELFPAY ==
--- OUTSIDE RECORDS SUMMARY | 2025-09-22 08:01 | XMS_ITS | Clinical Summary ---
Author Organization [facility] Address [address] [place] [address] Care Team Providers Care Punchboard Stuffer Name Role Phone Spenser Jara MD Primary Care Provider + [phone] Leonel Crawford MD Unavailable Allergies No known active allergies Medications blood-glucose meter kitIndications: Type 2 diabetes mellitus with hyperglycemia, with long-term current use of insulin (HCC) Use as directed. 1 kit 05/29/2025 Active blood glucose diagnostic (glucose blood) stripIndication s:Type 2 diabetes mellitus with hyperglycemia, with long-term current use of insulin (HCC) Use as directed up to three times a day. 100 each 1 05/29/2025 Active lancets miscIndications :Type 2 diabetes mellitus with hyperglycemia, with long-term current use of insulin (HCC) Use as directed up to 3 times a day. 100 each 1 05/29/2025 Active acetaminophen 500 mg capsuleIndicati ons:Pain Take 2 capsules (1,000 mg total) by mouth every 6 (six) hours as needed for pain 05/30/2025 Active aspirin 81 mg chewable tablet Take 1 tablet (81 mg total) by mouth daily 30 tablet 05/31/2025 05/31/20 26 Active atorvastatin (LIPITOR) 40 mg tablet Take 1 tablet (40 mg total) by mouth nightly 30 tablet 1 05/30/2025 Active pen needle, diabetic (Pen Needle) 32 gauge x 5/32 needle Use as directed once a day. 100 each 05/30/2025 Active pen needle, diabetic 32 gauge x needle Use as directed 3 times a day. 100 each 05/30/2025 Active metoprolol tartrate (LOPRESSOR) 25 mg immediate release tablet Take 0.5 tablets (12.5 mg total) by mouth 2 (two) times a day 30 tablet 1 05/30/2025 Active clopidogreL (PLAVIX) 75 mg tablet Take 1 tablet (75 mg total) by mouth daily 90 tablet 4 07/02/2025 07/02/20 26 Active Synjardy 5-500 mg tablet Take 1 tablet by mouth daily 06/11/2025 Active Active Problems Problem Noted Date Diagnosed Date Aftercare following surgery of the circulatory s ystem 07/02/2025 NSTEMI (non-ST elevated myocardial infarction) 0 05/24/2025 SVT (supraventricular tachycardia) 05/24/2025 Benign essential HTN 05/24/2025 Mixed hyperlipidemia 05/24/2025 Type 2 diabetes mellitus wit h hyperglycemia, with long-term current use of insulin 05/24/2025 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 05/21/2025 Encounters Date Type Department Care Team Description 07/06/2025 9:00 AM CDT Office Visit [facility] [address] [place] [address] Kelsey Russo NP Coronary artery disease involving picayune coronary artery of picayune heart without angina pectoris (Primary Dx); History of non-ST elevation myocardial infarction (NSTEMI); Hx of CABG; Type 2 diabetes mellitus with hyperglycemia, without long-term current use of insulin (HCC); Hospital discharge follow-up 07/02/2025 10:39 AM CDT - 07/02/2025 11:59 PM CDT Hospital Encounter [facility] [address] [place] [address] Pleural effusion Discharge Disposition: Discharge to home or self care 07/02/2025 10:30 AM CDT Office Visit Cardiovascular and Thoracic Surgery [address] [place] [address] Emily Agudelo MD Aftercare following surgery of the circulatory system (Primary Dx) from Last 3 Months Surgical History Surgery Date Site/Laterality Comments CARDIAC CATHETERIZATION CORONARY ARTERY BYPASS GRAFT 05/25/2025 Chest/N/A Procedure: CORONARY ARTERY BYPASS GRAFTx3.; Surgeon: Emily Agudelo MD; Location: [facility]; Service: Cardiothoracic; Laterality: N/A; Medical History Medical History Date Comments CAD (coronary artery disease) SVT (supraventricular tachycardia) Benign essential HTN T2DM (type 2 diabetes mellitus) Family History Medical History Relation Name Comments COPD Father Heart disease Mother Diabetes Paternal Grandfather defects Son Relation Name Status Comments Father Mother Alive Paternal Grandfather Son Alive Social History Tobacco Use Types Packs/Day Years Used Date Smoking Tobacco: Former Cigarettes Passive Smoke Exposure: Never Smokeless Tobacco: Never Comments:Quit smoking 40 yea rs ago. Had started smoking at age 17 y.o. Alcohol Use Standard Drinks/Week Comments Yes 0 (1 standard drink = 0.6 oz pur e alcohol) Social Connection and Isolation Panel Answer Date Recorded In a typical week, how many times do you talk on the phone with family, friends, or neighbors? More than three times a week 05/26/2025 How often do you get togethe r with friends or relatives? More than three times a week 05/26/2025 How often do you attend [facility] or rastafarian services? More than 4 times per year 05/26/2025 Do you belong to any clubs o r organizations such as advent groups, unions, fraternal or athletic groups, or school groups? No 05/26/2025 How often do you attend meet ings of the clubs or organizations you belong to? Never 05/26/2025 Are you , , di vorced, , never , or living with a partner? 05/26/2025 AUDIT-C Answer Date Recorded Q1: How often do you have a drink containing alc ohol? Monthly or less 05/25/2025 Q2: How many drinks containi ng alcohol do you have on a typical day when you are drinking? 1 or 2 05/25/2025 Q3: How often do you have si x or more drinks on one occasion? Never 05/25/2025 Overall Financial Resource Strain (CARDIA) Answe r Date Recorded How hard is it for you to pa y for the very basics like food, housing, medical care, and heating? Not very hard 05/26/2025 Hunger Vital Sign Answer Date Recorded Within the past 12 months, y ou worried that your food would run out before you got the money to buy more. Never true 05/26/20 25 Within the past 12 months, t he food you bought just didn't last and you didn't have money to get more. Never true 05/26/2025 PRAPARE - Transportation Answer Date Re corded In the past 12 months, has l ack of transportation kept you from medical appointments or from getting medications? No 05/08 In the past 12 months, has l ack of transportation kept you from meetings, work, or from getting things needed for daily living? No 05/26/2025 Housing Stability Vital Sign Answer Damaso e Recorded In the last 12 months, was t here a time when you were not able to pay the mortgage or rent on time? No 05/26/2025 In the past 12 months, how m any times have you moved where you were living? 0 05/26/2025 At any time in the past 12 m [facility], were you homeless or living in a detention (including now)? No 05/26/2025 [facility] Utilities Answer Date Recorded In the past 12 months has th e electric, gas, oil, or water company threatened to shut off services in your home? No 05/26/2025 Personal Safety Answer Date Recorded Have you ever been in or are you currently in a harmful physical or emotional relationship or is someone making you feel afraid or unsafe? 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 Gender Identity Not on file Sexual Orientation Not on file Last Filed Vital Signs Vital Sign Reading Time Taken Comments Blood Pressure 102/70 07/06/2025 8:56 AM CDT Pulse 72 07/06/2025 8:56 AM CDT Temperature 36.4 C (97.6 F) 05/30/2025 9:06 AM CDT Respiratory Rate 18 05/30/2025 9:06 AM CDT Oxygen Saturation 98% 07/06/2025 8:56 AM CDT Inhaled Oxygen Concentration - - Weight 96.2 kg (212 lb) 07/06/2025 8:56 AM CDT Height 182.9 cm (6') 07/06/2025 8:56 AM CDT Body Mass Index 28.75 07/06/2025 8:56 AM CDT Plan of Treatment Health Maintenance Due Date Last Done Comments Albumin Creatinine Ratio, Urine 1957 Colon Cancer Screening-Colonoscopy 1957 Depression Screening 1957 Hepatitis C Screening 1957 Prostate Cancer Screening-PSA 1957 Dilated Eye Exam 1957 Foot Exam 1957 DTaP/Tdap/Td Vaccine (1 - Tdap) 1968 Hepatitis B Screening 1975 Pneumococcal vaccine 65+ (1 of 2 - PCV) 1976 Zoster Vaccine (1 of 2) 2007 Abdominal Aortic Aneurysm (A AA) Screen 2022 Well Visit 65+ 2022 Influenza Vaccine (#1) 2025 Hemoglobin A1C 11/25/2025 05/25/2025 Lipid Panel 05/25/2026 05/25/2025 Fall Risk Assessment 05/30/2026 05/30/2025 eGFR 05/30/2026 05/30/2025, 05/09, 05/28/2025, Additional history exists Procedures Procedure Name Priority Date/Time Associated Diagnosis Comments XR CHEST PA LATERAL 2 VIEWS Schedule Routine, Read Routine (OP Routine) 07/02/2025 10:53 AM CDT Pleural effusion EGFR Routine 05/30/2025 12:54 AM CDT HEMOGLOBIN A1C Routine 05/25/2025 4:39 AM CDT LIPID PANEL Routine 05/25/2025 4:39 AM CDT from Last 3 Months or Most Recently Relevant to Health Maintenance Results * X-ray chest 2 views (07/02/2025 10:53 AM CDT) Anatomical Region Laterality Modality Body, Chest N/A Computed Radiogr aphy 07/02/2025 11:3 2 AM CDT Impressions 07/02/2025 11:32 AM CDT 1. Negative postoperative chest radiographic examination. COMMENT: Please see above for additional findings. Electronically signed by: Nate Kent M.D. Narrative 07/02/2025 11:32 AM CDT XR CHEST PA LATERAL 2 VIEWS HISTORY: pleural effusion COMPARISON: Portable chest 05/30/2025 at 0543 hours A chest radiograph in the PA and lateral projections were presented. FINDINGS: The patient has undergone a median sternotomy. There is no evidence of pneumothorax. The osseous structures and chest wall are grossly within expected limits. The mediastinum and hayes within expected limits. The cardiac silhouette within normal size limits. The lateral and posterior costophrenic angles are preserved bilaterally. No definite infiltrates, suspicious opacities or abnormal interstitial markings are appreciated. The included portion of the upper abdomen is within expected limits. Procedure Note Nate Kent MD - 07/02/2025 XR CHEST PA LATERAL 2 VIEWS HISTORY: pleural effusion COMPARISON: Portable chest 05/30/2025 at 0543 hours A chest radiograph in the PA and lateral projections were presented. FINDINGS: The patient has undergone a median sternotomy. There is no evidence of pneumothorax. The osseous structures and chest wall are grossly within expected limits. The mediastinum and hayes within expected limits. The cardiac silhouette within normal size limits. The lateral and posterior costophrenic angles are preserved bilaterally. No definite infiltrates, suspicious opacities or abnormal interstitial markings are appreciated. The included portion of the upper abdomen is within expected limits. IMPRESSION: 1. Negative postoperative chest radiographic examination. COMMENT: Please see above for additional findings. Electronically signed by: Nate Kent M.D. us Emily Agudelo MD IMG XR PROCEDURES Final Res ult * eGFR (05/30/2025 12:54 AM CDT) eGFR >90 >=60 mL/min/1. 73 m2 Comment: Interpretive Data Reference Interval Normal >/= 90 mL/min/1.73m2 Mildly decreased* 60 - 89 mL/min/1.73m2 Mildly to moderately decreased 45 - 59 mL/min/1.73m2 Moderately to severely decreased 30 - 44 mL/min/1.73m2 Severely decreased 15 - 29 mL/min/1.73m2 Kidney Failure < 15 mL/min/1.73m2 *Relative to young adult level Estimated glomerular filtration rate is determined by the 2020 CKD-EPI equation recommended by the National Kidney Foundation (A Unifying Approach to GFR Estimation: Recommendations of the NKF-ASK Task Force on Reassessing the Inclusion of Race in Diagnosing Kidney Disease, JASN 2020). The CKD-EPI equation should not be used for patients with unstable renal function and has not been validated in children and those over 70. Current interpretive data was last reviewed 2021. Blood 05/30/2025 12:5 4 AM CDT 05/30/2025 1:04 AM CDT us Linda Tony NP LAB BLOOD ORDERABLES Fin al Result Performing Organization Address [facility] Co de Phone Number [facility] [address] [place], [place] [id number] * (ABNORMAL) Hemoglobin A1c (05/25/2025 4:39 AM CDT) Hgb A1C 10.4(H) 4.0 - 5.6 % Estimated Average Glucose 252 mg/dL [facility] Comment: The ADA recommends reporting an estimated Average Glucose (eAG) with all Hemoglobin A1c results using the equation derived from a study of 507 normal and diabetic adults. Minority populations were underrepresented and children were not included. (Diabetes Care 31:9363-6784, 2008). The eAG is not equivalent to a fasting glucose. Blood 05/25/2025 4:39 AM CDT 05/25/2025 4:49 AM CDT us Thomas Candelaria MD LAB BLOOD ORDERABLES Final Resul t Performing Organization Address [facility] Co de Phone Number [facility] [address] [place] [address] * (ABNORMAL) Lipid panel (05/25/2025 4:39 AM CDT) Cholesterol 163 30 - 199 mg/dL Comment: Interpretive Data Ages < or = 19 years Acceptable: <170 mg/dL Borderline high: 170-199 mg/dL High: >or= 200 mg/dL Ages > or = 20 years Desirable: <200 mg/dL Borderline high: 200-239 mg/dL High: >or= 240 mg/dL Literature References: 1. Expert Panel on Integrated Guidelines for Cardiovascular Health and Risk Reduction in Children and Adolescents. Pediatrics 2011;128:S213 2. NCEP Expert Panel. Circulation 2004;110:227 Current Interpretive Data was last revised on 2018. Triglycerides 244(H) <=149 mg/dL [facility] Comment: Interpretive Data Ages < or = 9 years Acceptable: <75 mg/dL Borderline high: 75-99 mg/dL High: >or= 100 mg/dL Ages 10 to 20 years Acceptable: <90 mg/dL Borderline high: 90-129 mg/dL High: >or= 130 mg/dL Ages > or = 20 years Desirable: <150 mg/dL Borderline high: 150-199 mg/dL High: 200-499 mg/dL Very high: >or= 499 mg/dL Literature References: 1. Expert Panel on Integrated Guidelines for Cardiovascular Health and Risk Reduction in Children and Adolescents. Pediatrics 2011;128:S213 2. NCEP Expert Panel. Circulation 2004;110:227 Current Interpretive Data was last revised on 2018. HDL 31(L) >=40 mg/dL [facility] Comment: Interpretive Data Ages < or = 19 years Acceptable: >45 mg/dL Borderline low: 40-45 mg/dL Low: <40 mg/dL Ages > or = 20 years Desirable: >or= 60 mg/dL Low: <40 mg/dL Literature References: 1. Expert Panel on Integrated Guidelines for Cardiovascular Health and Risk Reduction in Children and Adolescents. Pediatrics 2011;128:S213 2. NCEP Expert Panel. Circulation 2004;110:227 Current Interpretive Data was last revised on 2018. LDL, calculated 91 <=129 mg/dL [facility] Comment: Interpretive Data Ages < or = 19 years Acceptable: <110 mg/dL Borderline high: 110-129 mg/dL High: >or= 130 mg/dL Ages > or = 20 years Optimal: <100 mg/dL Near optimal: 100-129 mg/dL Borderline high: 130-159 mg/dL High: >160 mg/dL Calculated using the Richard LDL-C estimating equation. This equation was implemented on 2024. Prior to this date LDL-C was estimated using the Friedewald equation. Literature References: 1. Expert Panel on Integrated Guidelines for Cardiovascular Health and Risk Reduction in Children and Adolescents. Pediatrics 2011;128:S213 2. NCEP Expert Panel. Circulation 2004;110:227 3. Richard Isaac et al. JODY Cardiol. 2020 February 05;5(5):540-548. doi: 10.1001/jamacardio.2020.0013 Current Interpretive Data was last revised on 2024. Non-HDL Cholesterol 132 mg/dL [facility] Comment: Interpretive Data Ages < or = 19 years Acceptable: <120 mg/dL Borderline high: 120-144 mg/dL High: >145 mg/dL Ages > or = 20 years When triglycerides are >200 mg/dL, Non-HDL cholesterol is a secondary target of therapy with treatment goals that are 30 mg/dL greater than the LDL cholesterol target. Literature References: 1. Expert Panel on Integrated Guidelines for Cardiovascular Health and Risk Reduction in Children and Adolescents. Pediatrics 2011;128:S213 2. NCEP Expert Panel. Circulation 2004;110:227 Current Interpretive Data was last revised on 2018. Chol/HDL ratio 5 [facility] Blood 05/25/2025 4:39 AM CDT 05/25/2025 4:49 AM CDT Thomas Candelaria MD LAB BLOOD ORDERABLES Final Resul t [facility] [address] Department [place] [address] from Last 3 Months or Most Recently Relevant to Health Maintenance Insurance [employer] MEDICARE [facility] Advance Directives For more information, please contact: [phone] * Full Code (Latest Code Status on File) Date Activated Date Inactivated Comments 05/24/2025 9:18 PM 05/30/2025 6:03 PM Care Teams Punchboard Stuffer Relationship Specialty Start Date End Date Spenser Jara MD [address] [place] [address] [address] PCP - General Family Medicine 05/20/25 Leonel Crawford MD [facility] [place] [address] [address] Consulting Physician Cardiology 05/28/25
[2025-09-22 19:35] LABS: Alanine Aminotransferase 28 U/L (6-50); Albumin Level 4.4 g/dL (3.5-5.1); Alkaline Phosphatase 85 U/L (38-126); Anion Gap 6 mmol/L (4-12); Aspartate Amino Transferase 45 U/L (17-59); Bilirubin,Total 0.7 mg/dL (0.2-1.3); Blood Urea Nitrogen 22 mg/dL (9-20); Calcium 9.8 mg/dL (8.4-10.2); Carbon Dioxide 27 mmol/L (22-30); Chloride 103 mmol/L (98-107); Cholesterol 133 mg/dL (0-200); Estimated Glomerular Filt Rate > 60; Glucose 131 mg/dL (65-110); HDL Direct 31 mg/dL; Potassium 4.6 mmol/L (3.4-5.0); Sodium 136 mmol/L (137-145); Total Protein 7.7 g/dL (6.3-8.2); Triglycerides 246 mg/dL (<150)
[2025-09-22 19:44] LABS: MALB Creatinine Ratio 84.6 mg/g (0-30)
[2025-09-22 19:56] LABS: Hemoglobin A1C 7.4 % (<5.7)
[2025-09-22 20:26] LABS: Vitamin B12 309.0 pg/mL (239-931)
== END 2025-09-22 07:58 | disposition home or self-care (01) ==
LOC: ANHGOSHLAB 07:57
PROVIDERS: PCP Family Medicine; Visit Provider Family Medicine
DX: E11.65 Type 2 diabetes mellitus with hyperglycemia (principal); E11.59 Type 2 diabetes mellitus with other circulatory complications; I25.10 Atherosclerotic heart disease of native coronary artery without angina pectoris; E11.42 Type 2 diabetes mellitus with diabetic polyneuropathy
CPT/HCPCS: 36415; 80053; 80061; 82043; 82607; 83036